=== PATIENT | male | born 1980 | race Caucasian/White ===

== ENCOUNTER 2017-08-08 11:20 | Emergency (ER) | payer OTHER ==
[2017-08-08 12:00] VITALS: BP 124/88
--- NOTE | 2017-08-08 13:07 | UC ---
Respiratory Complaint HPI - HPI Summary HPI Summary: Pt presents with c/o cough, wheezing and SOB. Pt has history of asthma but has not seen a pCP in over 3 months due to health insurance lapse. Pt is requesting refill on medication. - History of Current Complaint Chief Complaint: UCGeneralIllness Stated Complaint: EAR PAIN, CONGESTION, SORE THROAT Time Seen by Provider: 08/08/17 12:02 Hx Obtained From: Patient ?: No Onset/Duration: Gradual Onset, Lasting Days Timing: Intermittent Episodes Severity Initially: Mild Severity Currently: Mild Pain Intensity: 4 Pain Scale Used: 0-10 Numeric Character: Cough: Nonproductive Aggravating Factors: Exertion, Deep Breaths, Recumbent Position Alleviating Factors: Nothing Associated Signs And Symptoms: Positive: Wheezing, URI - Risk Factors Pulmonary Embolism Risk Factors: Smoking Cardiac Risk Factors: Smoking Pseudomonas Risk Factors: Chronic Lung Disease - astham Tuberculosis Risk Factors: Smoking - Allergies/Home Medications Allergies/Adverse Reactions: Allergies Allergy/AdvReac Type Severity Reaction Status Date / Time Aspirin Allergy Swelling Verified 08/08/17 12:00 Of Face,Lips,& Throat Home Medications: Home Medications Ibuprofen TAB* [Motrin TAB* 600 MG] 600 mg PO Q6H PRN 08/08/17 [History Confirmed 08/08/17] PMH/Surg Hx/FS Hx/Imm Hx Previously Healthy: Yes Respiratory History: Asthma - Surgical History Surgical History: Yes Surgery Procedure, Year, and Place: ear tubes. adenoids removed - Family History Known Family History: Positive: Cardiac Disease - Social History Occupation: Employed Full-time Lives: With Family Alcohol Use: None Substance Use Type: None Smoking Status (MU): Heavy Every Day Tobacco Smoker Amount Used/How Often: 1 ppd Have You Smoked in the Last Year: Yes When Did the Patient Quit Smoking/Using Tobacco: started age 11 Review of Systems Constitutional: Negative Skin: Negative Eyes: Negative ENT: Other - nasal congestion Respiratory: Cough, Other - wheezing Cardiovascular: Negative Gastrointestinal: Negative Genitourinary: Negative Motor: Negative Neurovascular: Negative Musculoskeletal: Negative Neurological: Negative Psychological: Negative Is Patient Immunocompromised?: No All Other Systems Reviewed And Are Negative: Yes Physical Exam Triage Information Reviewed: Yes Appearance: Well-Appearing Vital Signs: Initial Vital Signs Temp 97.8 F 08/08/17 11:54 Pulse 75 08/08/17 11:54 Resp 16 08/08/17 11:54 BP 124/88 08/08/17 11:54 Pulse Ox 99 08/08/17 11:54 Vital Signs Reviewed: Yes Eye Exam: Normal ENT: Positive: TM bulging - bilateral Dental Exam: Normal Neck exam: Normal Respiratory Exam: Other Respiratory: Positive: Decreased breath sounds - right lower base, Wheezing Cardiovascular Exam: Normal Musculoskeletal Exam: Normal Neurological Exam: Normal Psychological Exam: Normal Skin Exam: Normal UC Diagnostic Evaluation - Laboratory O2 Sat by Pulse Oximetry: 99 Respiratory Course/Dx - Differential Dx/Diagnosis Differential Diagnosis/HQI/PQRI: Asthma, Bronchitis Provider Diagnoses: reactive airway. unmanaged asthma. medication refill Discharge - Discharge Plan Condition: Stable Disposition: HOME Prescriptions: Albuterol HFA INHALER* [Ventolin HFA Inhaler*] 1 - 2 puff INH Q4H PRN #1 mdi PRN Reason: Wheezing Patient Education Materials: Wheezing (ED) Referrals: Heidy Valenzuela MD [Medical Doctor] - Additional Instructions: Please follow up with your PCP or return to clinic. Please continue care with your PCP to manage your previous diagnosis of asthma.
== END 2017-08-08 12:50 | disposition home or self-care (01) ==
LOC: UCCORT 11:20
DX: J45.909 Unspecified asthma, uncomplicated (principal); Z88.6 Allergy status to analgesic agent; F17.210 Nicotine dependence, cigarettes, uncomplicated; Z76.0 Encounter for issue of repeat prescription
CPT/HCPCS: 99202; G0463

== ENCOUNTER 2017-08-28 07:56 | Emergency (ER) | payer OTHER ==
--- NOTE | 2017-08-28 07:59 | UC ---
Throat Pain/Nasal Herson HPI - HPI Summary HPI Summary: 37 year old male presents with sinus congestion and left ear fullness. - History of Current Complaint Stated Complaint: EAR SINUS COMPLAINT Time Seen by Provider: 08/28/17 07:59 Hx Obtained From: Patient Onset/Duration: Sudden Onset Severity: Moderate Pain Scale Used: 0-10 Numeric - 7 - Allergies/Home Medications Allergies/Adverse Reactions: Allergies Allergy/AdvReac Type Severity Reaction Status Date / Time Aspirin Allergy Swelling Verified 08/28/17 08:04 Of Face,Lips,& Throat PMH/Surg Hx/FS Hx/Imm Hx - Surgical History Surgical History: Yes Surgery Procedure, Year, and Place: ear tubes. adenoids removed - Family History Known Family History: Positive: Cardiac Disease - Social History Alcohol Use: None Substance Use Type: None Smoking Status (MU): Heavy Every Day Tobacco Smoker Amount Used/How Often: 1 ppd Have You Smoked in the Last Year: Yes When Did the Patient Quit Smoking/Using Tobacco: started age 11 Review of Systems Constitutional: Negative Skin: Negative Eyes: Negative ENT: Ear Ache, Nasal Discharge, Sinus Congestion Respiratory: Negative Cardiovascular: Negative Gastrointestinal: Negative Genitourinary: Negative Motor: Negative Neurovascular: Negative Musculoskeletal: Negative Neurological: Negative Psychological: Negative All Other Systems Reviewed And Are Negative: Yes Physical Exam Triage Information Reviewed: Yes Appearance: Well-Appearing Eye Exam: Normal ENT: Positive: Nasal congestion, Nasal drainage Dental Exam: Normal Neck exam: Normal Neck: Positive: 1 Respiratory Exam: Normal Cardiovascular Exam: Normal Abdominal Exam: Normal Musculoskeletal Exam: Normal Neurological Exam: Normal Psychological Exam: Normal Skin Exam: Normal Throat Pain/Nasal Course/Dx - Differential Dx/Diagnosis Provider Diagnoses: sinus congestion. left ear moderate middle ear fluid Discharge - Discharge Plan Condition: Stable Disposition: HOME Prescriptions: Amoxicillin/Clavulanate TAB* [Augmentin TAB 875*] 875 mg PO BID #20 tab Neomyc/Polym/HC 1% OTIC SUSP* [Cortisporin Otic Susp 1%*] 4 drop LEFT EAR QID # 1 btl Patient Education Materials: Sinusitis (ED) Referrals: No Primary Care Phys,NOPCP [Primary Care Provider] -
[2017-08-28 08:04] VITALS: BP 118/80
== END 2017-08-28 08:22 | disposition home or self-care (01) ==
LOC: UCCORT 07:56
DX: R09.81 Nasal congestion (principal); H74.8X2 Other specified disorders of left middle ear and mastoid
CPT/HCPCS: 99212; G0463

== ENCOUNTER 2017-12-27 14:20 | Emergency (ER) | payer OTHER ==
--- OUTSIDE RECORDS SUMMARY | 2017-12-27 14:50 | XMS REPORT ---
:1980 External Reference #:[id number] Author Organization [facility] Address [address] [place] [address] Phone [phone] Care Team Providers Name Role Phone Heidy Valenzuela M.D. Care Team Information [place] Unavailable Payers Type Date Identification Numbers Payment Provider Subscriber Medicare Primary Policy Number: [id number] Medicare Raffy Lynn PayID: [id number] [address] [place] [address] Problems Description No Information Family History Date Family Member(s) Problem(s) Comments Father Unknown Father Hemochromatosis Mother Fibromyalgia Mother Multiple Sclerosis (MS) Social History Type Date Description Comments Cigarette Use Patient is a current cigarette smoker, smokes every day ETOH Use Social Allergies, Adverse Reactions, Alerts Date Description Reaction Status Severity Comments 09/03/2016 asprin active 09/03/2016 Nabumetone headache active ok to use ibuprofen 09/03/2016 Augmentin active Medications Medication Date Status Form Strength Qnty SIG Indications Ordering Provider Cetirizine Active Chewtabs 10mg 90unit one a Deniz F. HCL 016 s day MD Nicolas Ibuprofen Active Tablets 800mg 90tabs take one Deniz F. 016 tablet MD Nicolas by mouth every 8 hours as needed with food Ventolin HFA Active Aerosol 108(90Base) 24gm 2 puff Deniz F. 016 mcg/Act four MD Nicolas times a day as needed Symbicort Active Aerosol 80-4.5mcg/A 30.6gm [address] twice a MD Nicolas day Mucinex Hx Tablets ER 600mg 60tabs 1 by Heidy 016 - 12HR mouth Nicolas, twice a M.DGerardo 018 day as needed Alprazolam /0 Hx Tablets 0.5mg 1 by Unknown 000 - mouth 3x 2 a day as 018 needed Vital Signs Date Vital Result Comment 12/15/2017 BP Systolic 142 mmHg BP Diastolic 76 mmHg Height 73 inches 6'1" Weight 256.00 lb BMI (Body Mass Index) 33.8 kg/m2 Results Test Date Test Result H/L Range Note Aot Request 11/04/2017 Aot Request Test(s) added 1, 2 Tests to be added: d dimer 1 1 RAPID HEART RATE X4 DAYS,ABCESS INSIDE MOUTH 2 Tests: d dimer Instructions: Procedures Date CPT Code Description Status 12/15/2017 38726 PFT Evaluation Completed 12/15/2017 26362 Spirometry Graphic Record/Max Voluntary Vent Completed Encounters Type Date Location Provider CPT E/M Dx Office Visit 12/15/2017 2:20p [place] [id number] F17.200 F17.210 E66.9 R10.10 R10.30 J45.30 E83.10 E78.5 Plan of Care Future Appointment(s):12/22/2017 10:50 am - Deniz Valenzuela MD at Main Office
--- OUTSIDE RECORDS SUMMARY | 2017-12-27 14:50 | XMS REPORT ---
:1980 External Reference #:[id number] Author Organization [facility] Address [address] [place] [address] Phone [phone] Care Team Providers Name Role Phone Deniz Valenzuela MD Primary Care Physician Unavailable Payers Type Date Identification Numbers Payment Provider Subscriber Commercial Policy Number: [id number] [employer] Raffy Lynn PayID: [id number] [address] [place] [address] Problems Description No Information Family History Date [...] Form Strength Qnty SIG Indications Ordering Provider Hydroxyzine Active Tablets 90tabs one a Deniz F. HCL 018 day MD Nicolas Cetirizine HCL Active Chewtabs 10mg 90unit one a Deniz F. 016 s day MD Nicolas Ibuprofen Active Tablets 800mg 90tabs take one Deniz F. 016 tablet MD Nicolas by mouth every 8 hours as needed with food Ventolin HFA Active Aerosol 108(90Base 24gm 2 puff Deniz F. 016 ) mcg/Act four MD Nicolas times a day as needed Symbicort Active Aerosol 80-4.5mcg/ 30.6gm 2 puff Deniz F. 016 Act twice a MD Nicolas day Mucinex Hx Tablets ER 600mg 60tabs 1 by Heidy 016 - 12HR mouth Nicolas, twice a M.D. 018 day as needed Alprazolam Hx Tablets 0.5mg 1 by Unknown 000 - mouth 3x a day as 018 needed Immunizations CPT Code Status Date Vaccine Lot # [id number] Given 12/15/2017 Influenza Virus (Afluria) Split Virus 3 Years Of Age And Older Vital Signs Date Vital Result Comment 12/22/2017 BP Systolic 146 mmHg BP Diastolic 80 mmHg Height 73 inches 6'1" Weight 256.00 lb BMI (Body Mass Index) 33.8 kg/m2 12/15/2017 BP Systolic 142 mmHg BP Diastolic 76 mmHg Height 73 inches 6'1" Weight 256.00 lb BMI (Body Mass Index) 33.8 kg/m2 Results Test Date Test Result H/L Range Note Hepatic Function Panel 12/17/2017 Alkaline Phosphatase 54 U/L 40-115 Ast 17 U/L 10-40 Alt 37 U/L 9-46 Bilirubin,Total 0.4 mg/dL 0.2-1.2 Bilirubin,Direct 0.1 mg/dL < Or=0.2 Protein,Total 7.6 g/dL 6.1-8.1 Albumin 5.2 g/dL High 3.6-5.1 Globulin,Calculated 2.4 g/dL 1.9-3.7 A/G Ratio 2.2 1.0-2.5 Basic Metab W/O CA 12/17/2017 Sodium 140 mmol/L 135-146 Potassium 5.3 mmol/L 3.5-5.3 Chloride 104 mmol/L 98-110 Carbon Dioxide 28 mmol/L 20-31 Glucose 78 mg/dL 65-99 1 Urea Nitrogen (BUN) 14 mg/dL 7-25 Creatinine 0.96 mg/dL 0.60-1.35 BUN/Creatinine Ratio 15.0 6-22 Lipid Panel 12/17/2017 Cholesterol 226 mg/dL High <199 HDL Cholesterol 41 mg/dL >40 Cholesterol/HDL Ratio 5.5 CALC High <5.0 LDL Chol,Calculated 161 mg/dL High 0-100 2 Triglycerides 119 mg/dL <150 Non-HDL Cholesterol 186 mg/dL High <130 3 Iron Deficiency Profile 12/17/2017 Iron,Total 87 g/dL 50-180 Tibc 407 g/dL 250-425 % Saturation 21 % 15-60 Ferritin 172 NG/ML 20-345 Aot Request 11/04/2017 Aot Request Test(s) added 4, 5 Tests to be added: d dimer 4 1 GLUCOSE REFERENCE RANGE BASED ON FASTING SPECIMEN. 2 LDL-C is now calculated using the Lei-Reed calculation, which is a validated novel method providing better accuracy than the Friedewald equation in the estimation of LDL-C. Lei SS et al.GAVIOTA.2013;310(19):9009-3600 (http://education.[employer]/faq/QJJ270) Desirable range <100 mg/dL for patients with CHD or Diabetes and <70 mg/dL for Diabetic patients with known heart disease 3 For patients with diabetes plus 1 major ASCVD risk factor, treating to a non-HDL-C goal of <100 mg/dL (LDL-C of <70 mg/ dL) is considered a therapeutic option. 4 RAPID HEART RATE X4 DAYS,ABCESS INSIDE MOUTH 5 Tests: d dimer Instructions: Procedures Date CPT Code Description Status 12/15/2017 36221 PFT Evaluation Completed 12/15/2017 08344 Spirometry Graphic Record/Max Voluntary Vent Completed Encounters Type Date Location Provider CPT E/M Dx Office Visit 12/15/2017 2:20p [place] [id number] F17.200 F17.210 E66.9 R10.10 R10.30 J45.30 E83.10 E78.5 Z23 Plan of Care 12/22/2017 - Deniz Valenzuela MDAllNew Medication:Hydroxyzine HCL
[2017-12-27 14:56] VITALS: BP 136/101
--- NOTE | 2017-12-27 15:14 | UC ---
Respiratory Complaint HPI - HPI Summary HPI Summary: Pt c/o generalized malaise, cough, sob and bialteral ear pain. Pt has known history of tachycardia, htn and cholesteatoma. Pt has history of asthma and has been using rescue inh q 90 minutes - History of Current Complaint Chief Complaint: UCGeneralIllness Stated Complaint: EAR PAIN, URI SYMPTOMS Time Seen by Provider: 12/27/17 14:54 Hx Obtained From: Patient Onset/Duration: Gradual Onset, Lasting Weeks, Still Present Timing: Constant Severity Initially: Mild Severity Currently: Mild Pain Intensity: 0 Character: Cough: Nonproductive Aggravating Factors: Exertion, Deep Breaths, Recumbent Position Alleviating Factors: Nothing Associated Signs And Symptoms: Positive: Dyspnea, Wheezing, URI, Nasal Congestion - Risk Factors Pulmonary Embolism Risk Factors: Negative Cardiac Risk Factors: Hypertension Pseudomonas Risk Factors: Chronic Lung Disease - asthma - Allergies/Home Medications Allergies/Adverse Reactions: Allergies Allergy/AdvReac Type Severity Reaction Status Date / Time amoxicillin [From Augmentin] Allergy Difficulty Verified 12/27/17 14:58 Breathing/Wheezing clavulanic acid Allergy Difficulty Verified 12/27/17 14:58 [From Augmentin] Breathing/Wheezing MS Aspirin [Aspirin] Allergy Swelling Verified 12/27/17 14:56 Of Face,Lips,& Throat Home Medications: Home Medications Albuterol HFA INHALER* [Ventolin HFA Inhaler*] 2 puff INH Q4H PRN 12/27/17 [ History Confirmed 12/27/17] Budesonide/Formote 160/4.5(NF) [Symbicort 160/4.5 (NF)] 2 puff INH BID 12/27/17 [History Confirmed 12/27/17] Ibuprofen TAB* [Motrin TAB* 400 MG] 400 mg PO Q6H PRN 12/27/17 [History Confirmed 12/27/17] PMH/Surg Hx/FS Hx/Imm Hx Previously Healthy: No - anxiety Cardiovascular History: Hypertension Respiratory History: Asthma Psychological History: Anxiety - Surgical History Surgical History: Yes Surgery Procedure, Year, and Place: ear tubes. 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, 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 Gastrointestinal: Negative Genitourinary: Negative Motor: Negative Neurovascular: Negative Musculoskeletal: Negative Neurological: Negative Psychological: Negative Is Patient Immunocompromised?: No All Other Systems Reviewed And Are Negative: Yes Physical Exam Triage Information Reviewed: Yes Appearance: Well-Appearing Vital Signs: Initial Vital Signs Temp 98.5 F 12/27/17 14:51 Pulse 100 12/27/17 14:51 Resp 16 12/27/17 14:51 BP 136/101 12/27/17 14:51 Pulse Ox 99 12/27/17 14:51 Vital Signs Reviewed: Yes Eye Exam: Normal ENT: Positive: TM bulging - abnomal TMs bilatera, cholesteatoma Dental Exam: Normal Neck exam: Normal Respiratory Exam: Normal Cardiovascular: Positive: Tachycardia Musculoskeletal Exam: Normal Neurological Exam: Normal Psychological Exam: Normal Skin Exam: Normal UC Diagnostic Evaluation - Laboratory O2 Sat by Pulse Oximetry: 99 Respiratory Course/Dx - Course Course Of Treatment: I spoke to the pt about his vital signs. 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 Pt has vbeen prescribed atarax for insomnia. Pt is to establish care with PCP on Jan 07. - Differential Dx/Diagnosis Differential Diagnosis/HQI/PQRI: Bronchitis, Exacerbation Of COPD, Influenza Provider Diagnoses: bronchitis. tachycardia Discharge - Discharge Plan Condition: Stable Disposition: HOME Prescriptions: DOXYcycline CAP(*) [DOXYcycline 100MG CAP(*)] 100 mg PO Q12H #20 cap hydrOXYzine HCL TAB* [Atarax 25 MG TAB*] 25 mg PO QID PRN #40 tab PRN Reason: Anxiety methylPREDNISolone TAB* [Medrol TAB*] 4 - 8 mg PO .SEE PRADEEP #1 pradeep Patient Education Materials: Acute Bronchitis (ED), Tachycardia (ED) Referrals: [facility] [place] [facility]ERR[facility] [Outside] Non Staff,Doctor [Primary Care Provider] -
== END 2017-12-27 15:28 | disposition home or self-care (01) ==
LOC: UCCORT 14:20
DX: J40 Bronchitis, not specified as acute or chronic (principal); R00.0 Tachycardia, unspecified; I10 Essential (primary) hypertension; F41.9 Anxiety disorder, unspecified; H71.90 Unspecified cholesteatoma, unspecified ear; J45.909 Unspecified asthma, uncomplicated; F17.210 Nicotine dependence, cigarettes, uncomplicated; Z88.6 Allergy status to analgesic agent; Z88.3 Allergy status to other anti-infective agents
CPT/HCPCS: 99212; G0463

== ENCOUNTER 2018-01-09 16:06 | Emergency (ER) | payer OTHER ==
[2018-01-09 18:14] VITALS: BP 154/100
--- NOTE | 2018-01-09 18:43 | UC ---
Ear Complaint HPI - HPI Summary HPI Summary: C/O clogged right ear for the last 3 days. Pain today. Recent URI. Congestion is better. No fevers. Has colesteatoma with appointment coming up. - History of Current Complaint Chief Complaint: UCEar Stated Complaint: RIGHT EAR COMPLAINT Time Seen by Provider: 01/09/18 18:30 Hx Obtained From: Patient Onset/Duration: Sudden Onset, Lasting Days - 3, Worse Since - today. Severity Initially: Mild Severity Currently: Moderate Pain Intensity: 5 Aggravating Factors: Nothing Alleviating Factors: OTC Meds - ibuprofen makes it tolerable Associated Signs/Symptoms: Positive: Hearing Loss, URI Symptoms Related History: Seasonal Allergies - Allergies/Home Medications Allergies/Adverse Reactions: Allergies Allergy/AdvReac Type Severity Reaction Status Date / Time amoxicillin [From Augmentin] Allergy Difficulty Verified 01/09/18 18:06 Breathing/Wheezing clavulanic acid Allergy Difficulty Verified 01/09/18 18:06 [From Augmentin] Breathing/Wheezing MS Aspirin [Aspirin] Allergy Swelling Verified 01/09/18 18:06 Of Face,Lips,& Throat Home Medications: Home Medications FLUoxetine CAP* [Prozac CAP*] 20 mg DAILY 01/09/18 [History Confirmed 01/09/18] PMH/Surg Hx/FS Hx/Imm Hx Endocrine History: Dyslipidemia Respiratory History: Asthma - Surgical History Surgical History: Yes Surgery Procedure, Year, and Place: ear tubes. adenoids removed - Family History Known Family History: Positive: Cardiac Disease - Social History Occupation: Employed Full-time Lives: With Family Alcohol Use: None Substance Use Type: None Smoking Status (MU): Heavy Every Day Tobacco Smoker Type: Cigarettes Amount Used/How Often: 1/2 ppd Have You Smoked in the Last Year: Yes When Did the Patient Quit Smoking/Using Tobacco: started age 11 Cessation Counseling: Patient Advised to Stop - Immunization History Most Recent Influenza Vaccination: no 2017 Review of Systems ENT: Ear Ache Is Patient Immunocompromised?: No All Other Systems Reviewed And Are Negative: Yes Physical Exam Triage Information Reviewed: Yes Appearance: Well-Appearing, No Pain Distress, Well-Nourished Vital Signs: Initial Vital Signs Temp 98.6 F 01/09/18 18:08 Pulse 84 01/09/18 18:08 Resp 16 01/09/18 18:08 BP 154/100 01/09/18 18:08 Pulse Ox 99 01/09/18 18:08 Vital Signs Reviewed: Yes Eyes: Positive: Conjunctiva Clear ENT: Positive: Nasal congestion - with allergic changes.. Negative: TMs normal - with retraction. Neck exam: Normal Respiratory: Positive: Wheezing Cardiovascular Exam: Normal Musculoskeletal Exam: Normal Neurological Exam: Normal Psychological Exam: Normal Skin Exam: Normal Ear Complaint Course/Dx - Differential Dx/Diagnosis Differential Diagnosis/HQI/PQRI: Cerumen Impaction, Otitis Externa, Otitis Media , URI Provider Diagnoses: Allergic rhinitis. Eustachian tube dysfunction. Mild asthma Discharge - Discharge Plan Condition: Stable Disposition: HOME Prescriptions: Fluticasone NASAL SPRAY 50MCG* [Flonase NASAL SPRAY 50MCG*] 2 spray BOTH NARES DAILY #1 btl Montelukast Sodium TAB* [Singulair 10 MG TAB*] 10 mg PO BEDTIME #30 tab Patient Education Materials: Allergic Rhinitis (ED), Asthma (ED), Montelukast ( By mouth), Fluticasone (Into the nose) Referrals: Jania White NP [Primary Care Provider] - Additional Instructions: Smoking Cessation Tricks. 1. Cut down by 1 cigarette per day every 2-3 days. Write the number of smokes for that day on the calendar. 2. Identify triggers to smoking: after meals, on the phone, in the car, with coffee, on breaks at work, etc. 3. Formulate a plan with a behavior to replace the smoking. Fireballs in the car , doodle pad on the phone, flavored creamer for the coffee, go for a walk after a meal or on break at work. 4. For stress smokes do deep breathing relaxation. Breath deep in through the nose hold the breath in for a few seconds then breath out slowly through the mouth. NEILMED SINUS RINSE: CHECK OUT AT [facility] Saline nasal wash helps with mucous, allergies and congestion. It can be used up to twice a day or only as needed. Use lukewarm tap water. It does not have to be sterilized or distilled water. Do 1/3 on each side and snort out of both nostrils. Repeat the process with 1/6 of the bottle on each side with snorting in between to finish the solution in the bottle
== END 2018-01-09 19:02 | disposition home or self-care (01) ==
LOC: UCCORT 16:06
DX: J30.9 Allergic rhinitis, unspecified (principal); R06.00 Dyspnea, unspecified; J45.909 Unspecified asthma, uncomplicated; F17.210 Nicotine dependence, cigarettes, uncomplicated
CPT/HCPCS: 99212; G0463

== ENCOUNTER 2018-03-17 10:11 | Emergency (ER) | payer OTHER ==
--- NOTE | 2018-03-17 10:25 | UC ---
Throat Pain/Nasal [place] HPI - HPI Summary HPI Summary: Pt presents with sinus pain/pressure/congestion and productive cough for the last 10 days. He says that he has a history of asthma and has been using his albuterol and symbicort with mild relief. Has been taking ibuprofen OTC. Denies fever, sore throat, SOB, chest pain, abdominal pain. - History of Current Complaint Stated Complaint: EARS CONGESTION SORE THROAT Time Seen by Provider: 03/17/18 10:25 Hx Obtained From: Patient Onset/Duration: Gradual Onset Severity: Moderate Pain Intensity: 6 Pain Scale Used: 0-10 Numeric Cough: Productive - Allergies/Home Medications Allergies/Adverse Reactions: Allergies Allergy/AdvReac Type Severity Reaction Status Date / Time amoxicillin [From Augmentin] Allergy Difficulty Verified 01/09/18 18:06 Breathing/Wheezing aspirin Allergy Swelling Verified 03/17/18 10:31 Of Face,Lips,& Throat clavulanic acid Allergy Difficulty Verified 01/09/18 18:06 [From Augmentin] Breathing/Wheezing Home Medications: Home Medications Ibuprofen 400 mg PO Q6H 03/17/18 [History Confirmed 03/17/18] PMH/Surg Hx/FS Hx/Imm Hx Previously Healthy: Yes Respiratory History: Asthma - Surgical History Surgical History: Yes Surgery Procedure, Year, and Place: ear tubes. adenoids removed - Family History Known Family History: Positive: Cardiac Disease - Social History Occupation: Employed Full-time Lives: With Family Alcohol Use: None Substance Use Type: None Smoking Status (MU): Heavy Every Day Tobacco Smoker Type: Cigarettes Amount Used/How Often: 1/2 ppd Have You Smoked in the Last Year: Yes When Did the Patient Quit Smoking/Using Tobacco: started age 11 - Immunization History Most Recent Influenza Vaccination: no 2017 Review of Systems Constitutional: Fatigue Skin: Negative Eyes: Negative ENT: Nasal Discharge, Sinus Congestion, Sinus Pain/Tenderness Respiratory: Cough Cardiovascular: Negative Gastrointestinal: Negative Neurovascular: Negative Musculoskeletal: Negative Neurological: Negative Psychological: Negative All Other Systems Reviewed And Are Negative: Yes Physical Exam - Summary Physical Exam Summary: GENERAL: NAD. WDWN. No pain distress. SKIN: No rashes, sores, ulcers, masses, lesions. HEENT: NC/AT. Conjunctiva clear without inflammation or discharge. TMs intact , no bulging, erythema, or edema. Nasal mucosa mildly swollen and erythematous with clear discharge. TTP maxillary and frontal sinus. Posterior oropharynx without exudates, erythema, or tonsillar enlargement. Uvula midline. NECK: Supple. Nontender. No lymphadenopathy. CHEST: Mild wheezing throughout. No r/r. No accessory muscle use. Breathing comfortably and in no distress. CV: RRR. Without m/r/g. Pulses intact. Brisk cap refill. NEURO: Alert. CN II-XII grossly intact. PSYCH: Age appropriate behavior. Triage Information Reviewed: Yes Throat Pain/Nasal Course/Dx - Course Course Of Treatment: Pt says that he has taken amoxicillin without issues, but augmentin makes him feel "weird" and he does not tolerate it well - no throat swelling/hives/trouble breathing. Sinusitis. Bronchitis. Pt declined neb treatment and prednisone today. Will rx for amoxicillin as he said he has not responded well to zpak, keflex, or doxycycline. - Differential Dx/Diagnosis Provider Diagnoses: Sinusitis. Bronchitis Discharge - Sign-Out/Discharge Documenting (check all that apply): Discharge/Admit/Transfer - Discharge Plan Condition: Stable Disposition: HOME Prescriptions: Amoxicillin PO (*) [Amoxicillin 500 MG CAP*] 500 mg PO Q12H #20 cap guaiFENesin ER TAB [Mucinex*] 600 mg PO BID #20 tab.er Patient Education Materials: Acute Bronchitis (ED) Referrals: Jania White NP [Primary Care Provider] - Additional Instructions: If you develop a fever, shortness of breath, chest pain, new or worsening symptoms - please call your PCP or go to the ED. Your blood pressure was high at todays visit. Please see your primary provider within 4 weeks for recheck and re-evaluation. - Billing Disposition and Condition Condition: STABLE Disposition: HOME
--- OUTSIDE RECORDS SUMMARY | 2018-03-17 10:25 | XMS REPORT ---
:1980 External Reference #:[id number] Author Organization [facility] Address [address] [place] [address] Phone [phone] Care Team Providers Name Role Phone Rosa White NP Care Team Information Signalling And Communications Engineer Unavailable Rosa White CSR Primary Care Physician Unavailable Payers Type Date Identification Numbers Payment Provider Subscriber Commercial Effective: Policy Number: [id number] [facility] Raffy Lynn 2015 PayID: [id number] [address] [place] [address] Medicaid Policy Number: [id number] Medicaid Raffy Lynn PayID: [id number] [address] [place] [address] Problems Date Description Provider Status Onset: 05/02/2015 Hearing loss Irma Bradford RPAC Active Note: since Onset: 05/02/2015 Asthma Irma Bradford RPAC Active Note: seasonal Onset: 05/02/2015 Cigarette smoker Irma rBadford, RPAC Active Onset: 05/02/2015 Obesity Irma Bradford, RPAC Active Onset: 05/02/2015 Sacroiliac joint pain Irma Bradford, RPAC Active Onset: 06/21/2015 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 Onset: 07/11/2015 Cholesteatoma Irma Bradford RPAC Active Note: left Onset: 10/29/2015 Urolithiasis Irma Bradford RPAC Active Note: as a teen Onset: 10/29/2015 Microscopic hematuria Irma Bradford RPAC Active Onset: 03/27/2016 REM sleep behavior disorder Irma Sanchez [facility] Active Note: alprazolam Family History Date Family Member(s) Problem(s) Comments Father Anxiety Father Depression Father Hemochromatosis Father Liver Disease Father Alcoholism Father Drug Addiction Mother Multiple Sclerosis Mother Fibromyalgia Mother Diabetes Mother Anxiety Paternal Grandfather Unknown Paternal Grandmother Unknown Maternal Grandfather Unknown Maternal Grandmother Diabetes : (age 80 Maternal Grandmother due to Alzheimer's Years) Disease Social History Type Date Description Comments Lives With Lives With Children Occupation [employer] ETOH Use Occasionally consumes alcohol Smoking 13 Years Heavy tobacco smoker (more than 10 1 PPD cigarettes/day) Daily Caffeine Current Caffeine User 6 cups per day, 2 sodas Allergies, Adverse Reactions, Alerts Date Description Reaction Status Severity Comments 05/02/2015 Aspirin swelling active 05/02/2015 Nabumetone HEADACHE, ok for ibuprofen active 12/27/2015 Augmentin cannot tolerate active Medications Medication Date Status Form Strength Qnty SIG Indications Ordering Provider Prednisone 02/16 Active Tablets 10mg 10tab 1 po bid x J45.909 s 5 days ALEA White Nicotrol 02/16 Active Inhaler 10mg 336un 1 cartridge Z72.0 its as needed ALEA White up to 16 a day *do not use cigarettes when using inahler* Omeprazole 02/16 Active Capsules 20mg 30cap [address] summers every day ALEA White Hydroxyzine 01/29 Active Tablets 25mg 60tab one po Q4 [facility] HCL s hours for ALEA White anxiety Cetirizine 03/12 Active Tablets 10mg 30tab take one J30.9 José Gonzalez HCL s tablet by DO mouth every evening for nasal congestion/ allergies Ibuprofen 05/10 Active Tablets 800mg 120ta 1 by mouth M46.1 José Gonzalez /2014 bs every 6 DO hours as needed for pain Ventolin HFA 05/02 Active Aerosol 108(90Bas 18gm 1-2 puffs José Gonzalez /2014 e) every 4-6 DO mcg/Act hours as needed Symbicort 05/02 Active Aerosol 80-4.5mcg 20.4g 2 J45.909 Rosa /2014 /Act m inhalations Clune, TELEPHONE DIRECTORY DELIVERER twice a day Montelukast 00/00 Active Tablets 10mg 90tab One PO QHS Jenniferleigh Sodium /0000 s Clune, TELEPHONE DIRECTORY DELIVERER Azithromycin 01/19 Hx Tablets 250mg 6tabs 2 tabs H92.01 Lurdes Ryan, /2017 today and PNP-BC, TELEPHONE DIRECTORY DELIVERER, - then 1 tab Ibclc 02/16 every for 4 more days Fluoxetine 01/07 Hx Capsules 20mg 30cap 1 by mouth F41.1 Jenniferleigh HCL /2017 s every day OJ WhiteP - 02/16 Quetiapine 01/07 Hx Tablets 25mg 60tab take 1 G47.52 Jenniferleigh Fumarate s tablet by ALEA White - mouth 1 02/16 hour prior to sleep,if no improvement in 3 days,may try 2 tablets as needed up to 4 tablets at night Alprazolam 04/01 Hx Tablets 0.5mg 30tab 1 tab by G47.52 José Gonzalez s mouth every DO - night at 01/07 bedtime sleep disturbance ::: Reference #: [id number] Alprazolam 03/27 Hx Tablets 0.5mg 30tab 1 tab by G47.52 José Gonzalez Dispers s mouth at DO - bedtime 04/01 Trazodone HCL 03/12 Hx Tablets 50mg 30tab 1 by mouth G47.52 José Gonzalez s every night DO - insomnia 03/27 Mucinex 12/27 Hx Tablets 600mg 60tab 1-2 tabs by J45.909 José Gonzalez ER 12HR s mouth twice DO - a day 01/07 Amoxicillin/C 11/26 Hx Tablets 875-125mg 20tab 1 tab by H71.93 José Gonzalez lavulanate s mouth every DO Potassium - 12 hours 12/27 with food /2015 Work Note 11/26 Hx Raffy is H71.93 José Gonzalez following DO - at Primary 11/30 Care Office for chronic ear condition. Treatment is ongoing. Specialist visit arranged Cephalexin 12/07 Hx Capsules 500mg 30cap 1 cap ( or H66.3x2 José Gonzalez s tab) by DO - mouth three 12/27 times a day /2015 Work Note 07/26 Hx Was 719.47 José Gonzalez evaluated DO - on 07/26/1509/04 for (L) /2014 foot and ankle pain. May return to work without restriction s Cephalexin 06/21 Hx Tablets 500mg 30tab 1 tab (or 381.10 José Gonzalez s cap) by DO - mouth three 07/11 times a day /2014 Condylox 06/21 Hx Gel 0.5% 3.500 Small amt 078.10 José Gonzalez gm to penile DO - warts as 09/04 directed Flovent HFA 05/02 Hx Aerosol 44mcg/Act inhale two José Gonzalez puffs by DO - mouth twice 05/02 a day needed Ibuprofen 05/02 Hx Tablets 800mg 1 by mouth 720.2 José Gonzalez every 8 DO - hours as 05/02 needed for pain Mucinex 05/02 Hx Tablets 600mg 60tab take two by 491.1 José Gonzalez ER 12HR s mouth twice DO - a day for 06/15 chest congestion/ cough Cephalexin 05/02 Hx Tablets 500mg 30tab 1 tab (or 491.1 José Gonzalez s cap) by DO - mouth three 06/15 times a /2014 Nabumetone 05/02 Hx Tablets 750mg 60tab take one 720.2 José Gonzalez s tablet by DO - mouth twice 05/10 a day with food for pain as needed (substitute for ibuprofen ) Unisom 05/02 Hx Capsules 50mg uses every José Gonzalez Sleepgels /2014 night since DO - 14 yrs old 10/29 Neomycin-Poly Hx Solution 3.5-92214 to ears prn Unknown myxin-HC /0000 -1 - 10/29 Flovent HFA 00 Hx Aerosol mcg/Act 2 puff Unknown /0000 twice a day - 06/21 Hydrocortison Hx Solution 1% Otic 10uni Every 8 Unknown e/Neomycin/Po /0000 ts Hours lymyxin - 03/12 Hydroxyzine 00/00 Hx Tablets 25mg Irvin, HCL /0000 Erica Elmore NP - 01/19 Vital Signs Date Vital Result Comment 02/16/2018 BP Systolic Sitting Left Arm 124 mmHg BP Diastolic Sitting Left Arm 86 mmHg Body Temperature 98.6 F Heart Rate 80 /min Respiratory Rate 20 /min Height 73 inches 6'1" Weight 268.00 lb BMI (Body Mass Index) 35.4 kg/m2 BSA (Body Surface Area) 2.44 m2 [place] body weight in kilograms 83 O2 % BldC Oximetry 98 % 01/19/2018 BP Systolic 158 mmHg BP Diastolic 88 mmHg Body Temperature 98.0 F Heart Rate 97 /min Height 73 inches 6'1" Weight 259.00 lb BMI (Body Mass Index) 34.2 kg/m2 BSA (Body Surface Area) 2.40 m2 [place] body weight in kilograms 83 O2 % BldC Oximetry 97 % 01/07/2018 BP Systolic Sitting Left Arm 152 mmHg BP Diastolic Sitting Left Arm 92 mmHg Heart Rate 88 /min Respiratory Rate 18 /min Height 73 inches 6'1" Weight 262.00 lb BMI (Body Mass Index) 34.6 kg/m2 BSA (Body Surface Area) 2.41 m2 [place] body weight in kilograms 83 03/12/2016 BP Systolic 118 mmHg BP Diastolic 84 mmHg Body Temperature 97.9 F Heart Rate 74 /min Respiratory Rate 16 /min Height 72.75 inches 6'0.75" Weight 267.00 lb BMI (Body Mass Index) 35.5 kg/m2 BSA (Body Surface Area) 2.43 m2 O2 % BldC Oximetry 98 % 12/27/2015 BP Systolic Sitting Left Arm 154 mmHg BP Diastolic Sitting Left Arm 80 mmHg Body Temperature 96.6 F Height 72.75 inches 6'0.75" Weight 259.12 lb BMI (Body Mass Index) 34.4 kg/m2 BSA (Body Surface Area) 2.40 m2 11/26/2015 BP Systolic Sitting Left Arm 122 mmHg BP Diastolic Sitting Left Arm 64 mmHg Body Temperature 98.2 F Height 72.75 inches 6'0.75" Weight 261.12 lb BMI (Body Mass Index) 34.7 kg/m2 BSA (Body Surface Area) 2.40 m2 10/29/2015 BP Systolic Sitting Left Arm 144 mmHg BP Diastolic Sitting Left Arm 64 mmHg Height 72.75 inches 6'0.75" Weight 260.50 lb BMI (Body Mass Index) 34.6 kg/m2 BSA (Body Surface Area) 2.40 m2 07/26/2015 BP Systolic 130 mmHg BP Diastolic 68 mmHg Height 72.75 inches 6'0.75" Weight 260.00 lb BMI (Body Mass Index) 34.5 kg/m2 BSA (Body Surface Area) 2.40 m2 06/21/2015 BP Systolic 134 mmHg BP Diastolic 82 mmHg Heart Rate 86 /min Respiratory Rate 18 /min Height 72.75 inches 6'0.75" Weight 271.00 lb BMI (Body Mass Index) 36.0 kg/m2 BSA (Body Surface Area) 2.44 m2 O2 % BldC Oximetry 96 % Ra 05/02/2015 BP Systolic 127 mmHg sitting BP Diastolic 86 mmHg sitting Body Temperature 98.8 F Heart Rate 89 /min Height 72.75 inches 6'0.75" Weight 276.00 lb BMI (Body Mass Index) 36.7 kg/m2 BSA (Body Surface Area) 2.46 m2 Results Test Date Test Result H/L Range Note Chloride SerPl-sCnc 11/04/2017 Chloride SerPl-sCnc 108 High 98-107 Eosinophil/leuk NFr 11/04/2017 Eosinophil/leuk NFr 0.8 0.0-6.6 Bld Auto Bld Auto Globulin Ser Calc-mCnc 11/04/2017 Globulin Ser Calc-mCnc 3.7 1.9-4.3 Lymphocytes/leuk NFr 11/04/2017 Lymphocytes/leuk NFr 22.3 20.0-42.0 Bld Auto Bld Auto Monocytes/leuk NFr Bld 11/04/2017 Monocytes/leuk NFr Bld 4.6 0.0-10.0 Auto Auto Neutrophils # Bld Auto 11/04/2017 Neutrophils # Bld Auto 8.14 High 1.8- 7.0 Neutrophils/leuk NFr 11/04/2017 Neutrophils/leuk NFr 71.9 33.0-73.0 Bld Auto Bld Auto Potassium SerPl-sCnc 11/04/2017 Potassium SerPl-sCnc 4.0 3.5-5.1 RDW RBC Auto 11/04/2017 RDW RBC Auto 41.1 36-51 RDW RBC Auto-Rto 11/04/2017 RDW RBC Auto-Rto 12.7 11.6-15.8 Serum carbon dioxide 11/04/2017 Serum carbon dioxide 28 21-32 measurement measurement Serum or plasma 11/04/2017 Serum or plasma 4.4 3.4-5.0 albumin measurement albumin measurement (mass/volume) (mass/volume) Serum or plasma 11/04/2017 Serum or plasma 59 45-117 alkaline phosphatase alkaline phosphatase measurement ( measurement (enzymatic activity/volume) Serum or plasma 11/04/2017 Serum or plasma 13 Low 15-37 aspartate aspartate aminotransferase aminotransferase measure measurement (enzymatic activity/volume) Serum or plasma 11/04/2017 Serum or plasma 9.2 8.5-10.1 calcium measurement calcium measurement (mass/volume) (mass/volume) Serum or plasma 11/04/2017 Serum or plasma 1.0 0.6-1.3 creatinine measurement creatinine measurement (mass/volum (mass/volume) Serum or plasma 11/04/2017 Serum or plasma 92 74-106 glucose measurement glucose measurement (mass/volume) (mass/volume) Serum or plasma 11/04/2017 Serum or plasma 8.1 6.4-8.2 protein measurement protein measurement (mass/volume) (mass/volume) Serum or plasma total 11/04/2017 Serum or plasma total 0.6 0.2-1.0 bilirubin measurement bilirubin measurement (mass/ (mass/volume) Serum or plasma urea 11/04/2017 Serum or plasma urea 17 7-18 nitrogen measurement nitrogen measurement (mass/vo (mass/volume) Serum sodium 11/04/2017 Serum sodium 141 136-145 measurement measurement Unloinc 11/04/2017 Unloinc . WBC # Bld Auto 11/04/2017 WBC # Bld Auto 11.3 High 3.4-10.5 * Miscellaneous 11/04/2017 * Miscellaneous Test(s) studies (set) studies (set) added Comprehensive 11/04/2017 Glucose 92 mg/dL 74-106 1 Metabolic Panel BUN 17 mg/dL 7-18 1 Creatinine 1.0 mg/dL 0.6-1.3 1 Glom Filtration Rate, Estimate >60 mL/min >60 1 If >60 mL/min >60 1, 2 BUN/Creat 17.0 ratio 1 Sodium 141 mmol/L 136-145 1 Potassium 4.0 mmol/L 3.5-5.1 1 Chloride 108 mmol/L High 98-107 1 Carbon Dioxide 28 mmol/L 21-32 1 Anion Gap 5 mEq/L Low 8-16 1 Calcium 9.2 mg/dL 8.5-10.1 1 Total Protein 8.1 g/dL 6.4-8.2 1 Albumin 4.4 g/dL 3.4-5.0 1 Globulin 3.7 g/dL 1.9-4.3 1 Alb/Glob 1.2 ratio 1 Bilirubin,Total 0.6 mg/dL 0.2-1.0 1 Sgot/Ast 13 U/L Low 15-37 1, 3 SGPT/Alt 36 U/L 12-78 1 Alkaline Phosphatase 59 U/L 45-117 1 Laboratory test finding 11/04/2017 CK 168 U/L 39-308 1 Troponin-I < 0.015 ng/mL 1, 4 CBS W/Automated Diff 11/04/2017 White Blood Count 11.3 K/uL High 3.4-10.5 1 Red Blood Count 5.22 M/uL 4.20-5.80 1 Hemoglobin 16.0 gm/dL 12.8-17.0 1 Hematocrit 46.2 % 38.0-48.0 1 Mean Cell Volume 88.5 fl 80.0-96.0 1 Mean Corpuscular HGB 30.7 pg 27.0-33.0 1 Mean Corpuscular HGB Conc 34.6 g/dL 31.7-36.0 1 Platelet Count 273 K/uL 155-360 1 Red Cell Distri Width SD 41.1 fl 36-51 1 Red Cell Distri Width %CV 12.7 % 11.6-15.8 1 Mean Platelet Volume 9.8 fL 6.6-10.6 1 Neut% 71.9 % 33.0-73.0 1 Lymph % 22.3 % 20.0-42.0 1 Cavalier % 4.6 % 0.0-10.0 1 Eo% 0.8 % 0.0-6.6 1 Bas% 0.4 % 0.0-1.1 1 Neut# 8.14 K/uL High 1.8-7.0 1 Lymph # 2.53 K/uL 1.0-4.0 1 Cavalier # 0.52 K/uL 0.0-0.8 1 Eos # 0.09 K/uL 0.0-0.5 1 Baso # 0.04 K/uL 0.0-0.1 1 Slide Review 11/04/2017 Slide Review . 1, 5 Laboratory test 11/04/2017 D-Dimer, Quantitative < 0.22 1, 6 finding ug/mL Alt SerPl-cCnc 11/04/2017 Alt SerPl-cCnc 36 12-78 Albumin/Glob SerPl 11/04/2017 Albumin/Glob SerPl 1.2 Anion Gap SerPl-sCnc 11/04/2017 Anion Gap SerPl-sCnc 5 Low 8-16 Automated blood 11/04/2017 Automated blood 0.04 0.0-0.1 basophil count basophil count (count/volume) (count/volume) Automated blood 11/04/2017 Automated blood 0.09 0.0-0.5 eosinophil count eosinophil count Blood monocytes 11/04/2017 Blood monocytes 0.52 0.0-0.8 automated count automated count (number/volume) (number/volume) Blood hemoglobin 11/04/2017 Blood hemoglobin 16.0 12.8-17.0 measurement measurement (mass/volume) (mass/volume) Blood erythrocytes 11/04/2017 Blood erythrocytes 5.22 4.20-5.80 automated count automated count (number/volume) (number/volume) Basophils/leuk NFr Bld 11/04/2017 Basophils/leuk NFr Bld 0.4 0.0-1.1 Auto Auto BUN/Creat SerPl 11/04/2017 BUN/Creat SerPl 17.0 Automated erythrocyte 11/04/2017 Automated erythrocyte 88.5 80.0-96.0 mean corpuscular mean corpuscular volume volume Automated erythrocyte 11/04/2017 Automated erythrocyte 34.6 31.7-36.0 mean corpuscular mean corpuscular hemoglobin hemoglobin concentration measurement (mass/volume) Automated erythrocyte 11/04/2017 Automated erythrocyte 30.7 27.0-33.0 mean corpuscular mean corpuscular hemoglobin hemoglobin (mass per erythrocyte) Automated blood 11/04/2017 Automated blood 9.8 6.6-10.6 platelet mean volume platelet mean volume measurement measurement Automated blood 11/04/2017 Automated blood 273 155-360 platelet count platelet count Automated blood 11/04/2017 Automated blood 2.53 1.0-4.0 lymphocyte count lymphocyte count (number/volume) (number/volume) Automated blood 11/04/2017 Automated blood 46.2 38.0-48.0 hematocrit (volume hematocrit (volume fraction) fraction) Comprehensive 11/21/2015 Glucose 77 mg/dL 74-106 Metabolic Panel BUN 14 mg/dL 7-18 Creatinine 0.9 mg/dL 0.6-1.3 Glom Filtration Rate, Estimate >60 mL/min >60 If >60 mL/min >60 7 BUN/Creat 15.5 ratio Sodium 139 mmol/L 136-145 Potassium 4.1 mmol/L 3.5-5.1 Chloride 105 mmol/L 98-107 Carbon Dioxide 29 mmol/L 21-32 Anion Gap 5 mEq/L Low 8-16 Calcium 8.7 mg/dL 8.5-10.1 Total Protein 7.5 g/dL 6.4-8.2 Albumin 4.1 g/dL 3.4-5.0 Globulin 3.4 g/dL 1.9-4.3 Alb/Glob 1.2 ratio Bilirubin,Total 0.5 mg/dL 0.2-1.0 Sgot/Ast 14 U/L Low 15-37 8 SGPT/Alt 31 U/L 12-78 Alkaline Phosphatase 65 U/L 45-117 Laboratory test finding 11/21/2015 CK 199 U/L 39-308 Troponin-I < 0.015 ng/mL 9 CBC W/Automated Diff 11/21/2015 White Blood Count 7.3 K/uL 3.4-10.5 Red Blood Count 4.85 M/uL 4.20-5.80 Hemoglobin 14.9 gm/dL 12.8-17.0 Hematocrit 43.5 % 38.0-48.0 Mean Cell Volume 89.7 fl 80.0-96.0 Mean Corpuscular HGB 30.7 pg 27.0-33.0 Mean Corpuscular HGB Conc 34.3 g/dL 31.7-36.0 Platelet Count 261 K/uL 150-400 Red Cell Distri Width SD 41.0 fl 36-51 Red Cell Distri Width %CV 12.8 % 11.6-15.8 Mean Platelet Volume 9.8 fL 6.6-10.6 Neut% 43.9 % 33.0-73.0 Lymph % 47.6 % 17.0-56.0 Cavalier % 6.4 % 0.0-10.0 Eo% 1.6 % 0.0-5.0 Bas% 0.5 % 0.1-1.0 Neut# 3.21 K/uL 1.8-7.0 Lymph # 3.49 K/uL 1.8-7.0 Cavalier # 0.47 K/uL 0.0-0.8 Eos # 0.12 K/uL 0.0-0.5 Baso # 0.04 K/uL Low 0.1-0.2 Laboratory test finding 11/21/2015 Basophils # (Auto) 0.04 Low 0.1-0.2 Basophils (%) (Auto) 0.5 0.1-1.0 Eosinophils # (Auto) 0.12 0.0-0.5 Eosinophils (%) (Auto) 1.6 0.0-5.0 Lymphocytes # (Auto) 3.49 1.8-7.0 Lymphocytes (%) (Auto) 47.6 17.0-56.0 Monocytes # (Auto) 0.47 0.0-0.8 Monocytes (%) (Auto) 6.4 0.0-10.0 Neutrophils # (Auto) 3.21 1.8-7.0 Neutrophils (%) (Auto) 43.9 33.0-73.0 RDW Coefficient of Variation 12.8 11.6-15.8 Red Cell Distribution Width 41.0 36-51 Sodium Level 139 136-145 1 RAPID HEART RATE X4 DAYS,ABCESS INSIDE MOUTH 2 Note: Persistent reduction for 3 months or more in an eGFR <60 mL/min/1.73 m2 defines CKD. Patients with eGFR values >/=60 mL/min/1.73 m2 may also have CKD if evidence of persistent proteinuria is present. The original MDRD equation for estimated GFR is not valid for patients less than 18 years of age. Additional information may be found at www.kdoqi.org. 3 Values below the stated reference ranges of AST and ALT can be seen in normal populations. Clinical correlation is suggested. 4 0.0 - 0.045 ng/mL: Normal 0.046 - 0.5 ng/mL: Suggestive 0.6 - 1.5 ng/mL: Consistent 5 Instrument flagged sample for slide review. Less than 10% Bands seen, no other immature WBC's seen. RBC morphology essentially normal. Platelet estimate=NORMAL 6 <=0.49 ug/mL - Low likelihood of DIC, DVT or Pulmonary Embolism >0.49 ug/mL - Additional testing should be done to rule out DIC, DVT, or Pulmonary embolism as clinically indicated. ([facility] has established a 97.89% negative predictive value for thrombotic disease when a cutoff value of 0.5 ug/mL is used.) 7 Note: Persistent reduction for 3 months or more in an eGFR <60 mL/min/1.73 m2 defines CKD. Patients with eGFR values >/=60 mL/min/1.73 m2 may also have CKD if evidence of persistent proteinuria is present. The original MDRD equation for estimated GFR is not valid for patients less than 18 years of age. Additional information may be found at www.kdoqi.org. 8 Values below the stated reference ranges of AST and ALT can be seen in normal populations. Clinical correlation is suggested. 9 0.0 - 0.045 ng/mL: Normal 0.046 - 0.5 ng/mL: Suggestive 0.6 - 1.5 ng/mL: Consistent Procedures Description No Information Encounters Type Date Location Provider CPT E/M Dx Office Visit 02/16/2018 Family Medicine ALEA Zamudio 13915 J45.909 11:45a G47.52 F17.210 Z72.0 R12 Office Visit 01/19/2018 3:30p Family Medicine Lurdes Ryan PNP-, 40379 H92.01 TELEPHONE DIRECTORY DELIVERER, Ibclc Office Visit 01/07/2018 1:00p Family Medicine ALEA Zamudio 96285 H71.93 J45.909 F17.210 F41.1 G47.52 Office Visit 03/12/2016 2:00p Primary Care Office Irma Bradford 28985 G47.52 [facility] H60.42 J30.9 M77.11 Office Visit 12/27/2015 2:15p Primary Care Office Irma Bradford 26559 H71.93 [facility] J45.909 F17.210 Office Visit 11/26/2015 10:15a Primary Care Office Irma Bradford, 08347 H71.93 [facility] Office Visit 10/29/2015 1:15p Primary Care Office Irma Bradford, 78006 H66.3x2 [facility] J45.909 R31.2 Office Visit 07/26/2015 11:00a Primary Care Office Irma Bradford, 94355 719.47 RPA Office Visit 06/21/2015 2:15p Primary Care Office Irma Bradford, 15369 381.10 [facility] 078.10 Office Visit 05/02/2015 10:45a Primary Care Office Irma Bradford, 69393 385.30 [facility] 736.76 493.90 491.1 780.53 720.2 Plan of Care 02/16/2018 - Rosa White, FNPJ45.909 Unspecified asthma, uncomplicatedNew Medication:Prednisone 10 mgComments:Discussed continuing Singulair, restarting Symbicort twice daily Will do a VERY short course of prednisoneFollow up:10-14 days recheck hciqnjxpeR51.52 REM sleep behavior disorderComments:continue on Hydroxyzine 25 mgF17.210 Nicotine dependence, cigarettes, ylqnyxicyawajO74.0 Tobacco useNew Medication:Nicotrol 10 mgComments: Discussed options Various options for smoking cessation including cold turkey, gradual reduction of smoking till quit, use of nicotine replacement or Chantix/ Zyban. Encouraged contacting [place] [facility] ([phone] [place] [facility]) At this time will use nicotrol as you don't like oral [id number] HeartburnNew Medication: Omeprazole 20 mgComments:Discussed GERD diet: avoid hot spicy foods, tomato based products, acidic foods such as orange juiceas well as spearmint and peppermint (this includes chewing gum). Avoid tight fitting clothing and belts, as these delay emptying of the stomach. Don't lay down for 2 hours after eating , and try to eatsmaller meals, adding in small snacks between. Raising the head of the bed by several inches may also help night time symptoms.
--- OUTSIDE RECORDS SUMMARY | 2018-03-17 10:25 | XMS REPORT ---
:1980 External Reference #:[id number] Author Organization [facility] Address [address], [address] [place] [address] Phone [phone] Care Team Providers Name Role Phone Rosa White NP Care Team Information Teamcenter Solution Architect Unavailable Rosa White TRANSPORTATION ASSOCIATE Primary Care Physician Unavailable Payers Type Date Identification Numbers Payment Provider Subscriber Commercial Effective: Policy Number: [id number] [facility] Raffy Lynn 2015 PayID: [id number] [address] [place] [address] Medicaid Policy Number: [id number] Medicaid Raffy Lynn PayID: [id number] [address] [place] [address] Problems Date Description Provider Status Onset: 05/02/2015 Hearing loss Irma Bradford RPAC Active Note: since Onset: 05/02/2015 Asthma Irma Bradford RPAC Active Note: seasonal Onset: 05/02/2015 Cigarette smoker Irma Bradford, RPAC Active Onset: 05/02/2015 Obesity Irma Bradford, RPAC Active Onset: 05/02/2015 Sacroiliac joint pain Irma Bradford, RPAC Active Onset: 06/21/2015 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 Onset: 07/11/2015 Cholesteatoma Irma Bradford, RPAC Active Note: left Onset: 10/29/2015 Urolithiasis Irma Bradford RPAC Active Note: as a teen Onset: 10/29/2015 Microscopic hematuria Irma Bradford, RPAC Active Onset: 03/27/2016 REM sleep behavior disorder Irma Sanchez [facility] Active Note: alprazolam Family History Date [...] Comments Lives With Lives With Children Occupation [employer] ETOH Use Occasionally consumes alcohol [...] Form Strength Qnty SIG Indications Ordering Provider Nicotrol 02/16 Active Inhaler 10mg 336un 1 cartridge Z72.0 its as needed ALEA White up to 16 a day *do not use cigarettes when using inahler* Omeprazole 02/16 Active Capsules 20mg 30cap 1 by mouth R12 [address] summers every day ALEA White Hydroxyzine 01/29 Active Tablets 25mg 60tab one by Rosa BLUNT s mouth q4 ALEA White hours for anxiety Cetirizine 03/12 Active Tablets 10mg 30tab take one J30.9 Rosa BLUNT s tablet by ALEA White mouth every evening for nasal congestion/ allergies Ibuprofen 05/10 Active Tablets 800mg 120ta 1 by mouth M46.1 José Gonzalez /2014 bs every 6 DO hours as needed for pain Ventolin HFA 05/02 Active Aerosol 108(90Bas 18gm 1-2 puffs arlene e) every 4-6 ALEA White mcg/Act hours as needed Symbicort 05/02 Active Aerosol 80-4.5mcg 20.4g 2 J45.909 Rosa /Act m inhalations Clune, [employer] twice a day Montelukast Active Tablets 10mg 30tab one by Rosa Sodium / s mouth every Cindy, ALEA night at bedtime Prednisone 02/16 Hx Tablets 10mg 10tab 1 po bid x J45.909 Jenniferleigh s 5 days OJ WhiteP - 03/11 Azithromycin 01/19 Hx Tablets 250mg 6tabs 2 tabs H92.01 Lurdes Ryan, /2017 today and PNP-BC, [employer], - then 1 tab Ibclc 02/16 every day for 4 more days Fluoxetine 01/07 Hx Capsules 20mg 30cap 1 by mouth F41.1 Jenniferleigh HCL s every day ALEA White - 02/16 Quetiapine 01/07 Hx Tablets 25mg [...] 01/07 bedtime sleep disturbance ::: Reference #: [id number] Alprazolam 03/27 Hx Tablets 0.5mg 30tab 1 [...] following DO - at Primary 11/30 Care for chronic ear condition. Treatment is ongoing. Specialist visit arranged Cephalexin 10/29 Hx Capsules 500mg 30cap 1 cap ( [...] DO - a day for 06/15 chest /2014 congestion/ cough Cephalexin 05/02 Hx Tablets 500mg 30tab 1 tab (or 491.1 José Gonzalez s cap) by DO - mouth three 06/15 times a Nabumetone 05/02 Hx Tablets 750mg 60tab take one 720.2 José Gonzalez s tablet by DO - mouth twice 05/10 a day with food for pain as needed (substitute for ibuprofen ) Unisom 05/02 Hx Capsules 50mg uses every José Gonzalez Sleepgel /2014 night since DO - 14 yrs old 10/29 Neomycin-Poly Hx Solution [id number] to ears prn Unknown myxin-HC /0000 -1 - 10/29 Flovent HFA Hx Aerosol mcg/Act 2 puff Unknown /0000 twice a day - 06/21 Hydrocortison Hx Solution 1% Otic 10uni Every 8 Unknown e/Neomycin/Po /0000 ts Hours lymyxin - 03/12 Hydroxyzine Hx Tablets 25mg Gutierrez-Gugerty, HCL /0000 Erica Elmore TRANSPORTATION ASSOCIATE - 01/19 Vital Signs Date Vital Result Comment 03/11/2018 BP Systolic Sitting Left Arm 128 mmHg BP Diastolic Sitting Left Arm 84 mmHg Body Temperature 98.2 F Heart Rate 84 /min Respiratory Rate 18 /min Height 73 inches 6'1" Weight 271.00 lb BMI (Body Mass Index) 35.8 kg/m2 BSA (Body Surface Area) 2.45 m2 [place] body weight in kilograms 83 02/16/2018 BP Systolic Sitting Left Arm 124 mmHg BP Diastolic Sitting Left Arm 86 mmHg Body Temperature 98.6 F Heart Rate 80 /min Respiratory Rate 20 /min Height 73 inches 6'1" Weight 268.00 lb BMI (Body Mass Index) 35.4 kg/m2 BSA (Body Surface Area) 2.44 m2 [place] body weight in kilograms 83 O2 % BldC Oximetry 98 % 01/19/2018 BP Systolic 158 mmHg BP Diastolic 88 mmHg Body Temperature 98.0 F Heart Rate 97 /min Height 73 inches 6'1" Weight 259.00 lb BMI (Body Mass Index) 34.2 kg/m2 BSA (Body Surface Area) 2.40 m2 [place] body weight in kilograms 83 O2 % BldC Oximetry 97 % 01/07/2018 BP Systolic Sitting Left Arm 152 mmHg BP Diastolic Sitting Left Arm 92 mmHg Heart Rate 88 /min Respiratory Rate 18 /min Height 73 inches 6'1" Weight 262.00 lb BMI (Body Mass Index) 34.6 kg/m2 BSA (Body Surface Area) 2.41 m2 [place] body weight in kilograms 83 03/12/2016 BP [...] 1 Lymph % 22.3 % 20.0-42.0 1 [place] % 4.6 % 0.0-10.0 1 Eo% 0.8 % 0.0-6.6 1 Bas% 0.4 % 0.0-1.1 1 Neut# 8.14 K/uL High 1.8-7.0 1 Lymph # 2.53 K/uL 1.0-4.0 1 [place] # 0.52 K/uL 0.0-0.8 1 Eos # [...] % 33.0-73.0 Lymph % 47.6 % 17.0-56.0 [place] % 6.4 % 0.0-10.0 Eo% 1.6 % 0.0-5.0 Bas% 0.5 % 0.1-1.0 Neut# 3.21 K/uL 1.8-7.0 Lymph # 3.49 K/uL 1.8-7.0 [place] # 0.47 K/uL 0.0-0.8 Eos # 0.12 [...] DVT, or Pulmonary embolism as clinically indicated. ([facility] has established a 97.89% negative predictive value [...] Location Provider CPT E/M Dx Office Visit 03/11/2018 [place] [address] J45.909 8:45a F17.210 R12 Office Visit 02/16/2018 11:[place] [address] J45.909 G47.52 F17.210 R12 Office Visit 01/19/2018 3:30p Family Medicine Lurdes Ryan PNP-BC, 38809 H92.01 [employer], Ibclc Office Visit 01/07/2018 1:00p Family Medicine ALEA Zamudio 73196 H71.93 J45.909 F17.210 F41.1 G47.52 Office Visit 03/12/2016 2:00p Primary Care Office Irma Bradford, 04281 G47.52 [facility] H60.42 J30.9 M77.11 Office Visit 12/27/2015 2:15p Primary Care Office Irma Bradford, 23134 H71.93 RPA J45.909 F17.210 Office Visit 11/26/2015 10:15a Primary Care Office Irma Bradford, 30688 H71.93 RPAC Office Visit 10/29/2015 1:15p Primary Care Office Iram Bradford, 27455 H66.3x2 [facility] J45.909 R31.2 Office Visit 07/26/2015 11:00a Primary Care Office Irma Bradford, 55477 719.47 RPAC Office Visit 06/21/2015 2:15p Primary Care Office Irma Bradford, 66420 381.10 RPAC 078.10 Office Visit 05/02/2015 10:45a Primary Care Office Irma Bradford, 66112 385.30 RPAC 736.76 493.90 491.1 780.53 720.2 Plan of Care Future Appointment(s):05/18/2018 8:30 am - ALEA Zamudio at [facility]03/11/2018 - ALEA ZamudioJ45.909 Unspecified asthma, uncomplicatedComments:MUCH better. Remember the rules of 2 - if your asthma wakes you up more than twice a week for cough,or you use your inhaler more than twice in a day or twice in one week, it could indicate that your asthma is no longer well controlled and you should be seen for further evaulation.F17.210 Nicotine dependence, cigarettes, uncomplicatedComments:Doing GREAT with smoking cessation. Continue with Nicotrol. We'll see in 2 months about D/C nicotrol.Follow up:2-3 months for recheck of GERD & [id number] HeartburnComments:Improved on Omeprazole - will continue for another 2 months, then consider D/CAllComments:All medications refilled.
[2018-03-17 10:37] VITALS: BP 131/94
== END 2018-03-17 11:04 | disposition home or self-care (01) ==
LOC: UCCORT 10:11
DX: J32.9 Chronic sinusitis, unspecified (principal); J40 Bronchitis, not specified as acute or chronic; F17.210 Nicotine dependence, cigarettes, uncomplicated; Z88.3 Allergy status to other anti-infective agents; Z88.6 Allergy status to analgesic agent
CPT/HCPCS: 99212; G0463

== ENCOUNTER 2018-07-24 07:59 | Emergency (ER) | payer OTHER ==
[2018-07-24 08:27] VITALS: BP 132/92
--- NOTE | 2018-07-24 08:49 | UC ---
Dental HPI - HPI Summary HPI Summary: 38 year old male presents with onset of right lower dental pain yesterday. States pain kept him awake most of the night. Notes area of swelling and tenderness to gums. Has appointment with dentist next week. Denies fever, chills , discharge, trismus, or dysphagia. - History of Current Complaint Chief Complaint: UCGeneralIllness Stated Complaint: ORAL CONCERN, SINUSES Time Seen by Provider: 07/24/18 08:27 Hx Obtained From: Patient Onset/Duration: Gradual Onset, Lasting Days - 1 Severity: Moderate Pain Intensity: 6 Aggravating Factor(s): Chewing, Other - touch Alleviating Factor(s): Nothing Related History: Swelling - Allergies/Home Medications Allergies/Adverse Reactions: Allergies Allergy/AdvReac Type Severity Reaction Status Date / Time amoxicillin [From Augmentin] Allergy Difficulty Verified 07/24/18 08:15 Breathing/Wheezing aspirin Allergy Swelling Verified 07/24/18 08:15 Of Face,Lips,& Throat clavulanic acid Allergy Difficulty Verified 07/24/18 08:15 [From Augmentin] Breathing/Wheezing PMH/Surg Hx/FS Hx/Imm Hx - Additional Past Medical History Additional PMH: noncontributory - Surgical History Surgical History: Yes Surgery Procedure, Year, and Place: ear tubes. adenoids removed - Family History Known Family History: Positive: Cardiac Disease - Social History Occupation: Employed Full-time Lives: With Family Alcohol Use: None Substance Use Type: Marijuana Substance Use Comment - Amount & Last Used: OCCASIONALLY Smoking Status (MU): Heavy Every Day Tobacco Smoker Type: Cigarettes Amount Used/How Often: less than 1/2 ppd Have You Smoked in the Last Year: Yes When Did the Patient Quit Smoking/Using Tobacco: started age 11 - Immunization History Most Recent Influenza Vaccination: no 2016 Most Recent Tetanus Shot: UTD Review of Systems Constitutional: Negative Skin: Negative Eyes: Negative ENT: Dental Pain Respiratory: Negative Cardiovascular: Negative Is Patient Immunocompromised?: No All Other Systems Reviewed And Are Negative: Yes Physical Exam Triage Information Reviewed: Yes Appearance: Well-Appearing, Well-Nourished, Pain Distress - Mildly uncomfortable Vital Signs: Initial Vital Signs Temp 98 F 07/24/18 08:25 Pulse 85 07/24/18 08:25 Resp 16 07/24/18 08:25 BP 132/92 07/24/18 08:25 Pulse Ox 100 07/24/18 08:25 Vital Signs Reviewed: Yes Eye Exam: Normal ENT: Positive: Dental tenderness - See diagram, Uvula midline, Other - No trismus. Negative: Pharyngeal erythema, Nasal congestion, Nasal drainage, Tonsillar swelling, Tonsillar exudate, Sinus tenderness Dental: Positive: Abscess @ - See diagram, Other: - Mild facial swelling right lower jaw. Patient endentulous from 1st bicuspid to molars right lower jaw.. Negative: Cervical Lymphadenopathy Neck: Positive: Supple, Nontender, No Lymphadenopathy Respiratory Exam: Normal Respiratory: Positive: Lungs clear, Normal breath sounds, No respiratory distress Cardiovascular: Positive: RRR, No Murmur Neurological: Positive: Alert Skin Exam: Normal Dental Complaint Course/Dx - Course Course Of Treatment: Patient with 1 day history of right lower dental pain and facial swelling. Exam reveals tender, edentulous area to right lower jaw with erythema, induration, and small pocket of fluctuance. Will treat with clindamycin 300 mg TID and recommend urgent follow up with dentist. - Differential Dx/Diagnosis Differential Diagnosis/Dx: Dental Abscess, Gingivitis, Odontogenic Pain Provider Diagnoses: dental abscess, elevated blood pressure reading Discharge - Sign-Out/Discharge Documenting (check all that apply): Patient Departure All imaging exams completed and their final reports reviewed: No Studies - Discharge Plan Condition: Stable Disposition: HOME Prescriptions: Clindamycin HCl 300 mg PO TID #30 capsule Patient Education Materials: Dental Abscess (ED) Referrals: Jania White NP [Primary Care Provider] - If Needed Additional Instructions: Start clindamycin 300 mg 1 cap every 8 hours for 10 days. Be sure to complete the entire course of antibiotic even if you are feeling better. Schedule an appointment with your dentist for next available appointment for evaluation and treatment. Use salt water rinses several times a day. Take an over the counter pain medication such as acetaminophen (Tylenol), ibuprofen (Advil, Motrin), or naproxen (Aleve) according to directions as needed for pain. You may also use a topical numbing agent such as Anbesol for temporary relief. Your blood pressure was slightly elevated in the clinic today. You should follow up with your primary care provider to have this rechecked. - Billing Disposition and Condition Condition: STABLE Disposition: Home Images Dental: 1 - Edentulous. Gingival tenderness, erythema, induration with small pocket of fluctuance.
== END 2018-07-24 09:01 | disposition home or self-care (01) ==
LOC: UCCORT 07:59
DX: K04.7 Periapical abscess without sinus (principal); R03.0 Elevated blood-pressure reading, without diagnosis of hypertension; F17.210 Nicotine dependence, cigarettes, uncomplicated; Z88.0 Allergy status to penicillin; Z88.6 Allergy status to analgesic agent; Z88.1 Allergy status to other antibiotic agents
CPT/HCPCS: 99212; G0463

== ENCOUNTER 2018-09-23 08:32 | Emergency (ER) | payer OTHER ==
--- OUTSIDE RECORDS SUMMARY | 2018-09-23 08:56 | XMS REPORT ---
:1980 External Reference #:[id number] Author Organization [facility] 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 Rosa White NP Primary Care Physician Unavailable Payers Type Date Identification Numbers Payment Provider Subscriber Commercial Effective: Policy Number: [id number] [employer] Medicaid Raffy Lynn 2015 PayID: [id number] [address] [place] [address] Medicaid Policy Number: [id number] Medicaid Raffy Lynn PayID: [id number] [address] [place] [address] Problems Date Description Provider Status Onset: 05/02/2015 Hearing loss Irma Bradford RPAC Active Note: since Onset: 05/02/2015 Asthma Irma Bradford RPAC Active Note: seasonal Onset: 05/02/2015 Cigarette smoker Irma Bradford RPAC Active Onset: 05/02/2015 Obesity Irma Bradford RPAC Active Onset: 05/02/2015 Sacroiliac joint pain Irma Bradford RPAC Active Onset: 06/21/2015 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 Onset: 07/11/2015 Cholesteatoma Irma Bradford RPAC Active Note: left Onset: 10/29/2015 Urolithiasis Irma Bradford RPAC Active Note: as a teen Onset: 10/29/2015 Microscopic hematuria Irma Bradford [facility] Active Onset: 03/27/2016 REM sleep behavior disorder Irma Bradford [facility] Active Note: alprazolam Family History Date Family [...] Comments Lives With Lives With Children Occupation [employer] ETOH Use Occasionally consumes alcohol [...] Strength Qnty SIG Indications Ordering Provider Nicotrol 02/16/ Active Inhaler 10mg 336un 1 cartridge Z72.0 Cindy, 2017 its as needed up Jenniferl to 16 a day eigh, [employer] *do not use cigarettes when using inahler* Omeprazole 02/16/ Active Capsules 20mg 30cap 1 by mouth R12 Cindy, 2017 DR summers every day Jenniferl eigh, [employer] Hydroxyzine 01/29/ Active Tablets 25mg 60tab one by mouth JOSE RAUL White 2018 s q4 hours for Jenniferl anxiety eigh, [employer] Cetirizine HCL 03/12/ Active Tablets 10mg 30tab take one J30.9 Cindy, 2015 s tablet by Jenniferl mouth every eigh, [employer] evening for nasal congestion/ allergies Ibuprofen 05/10/ Active Tablets 800mg 120ta 1 by mouth M46.1 Carlos 2014 bs every 6 hours José El, as needed for DO pain Ventolin HFA 05/02/ Active Aerosol 108(90Bas 18gm 1-2 puffs Cindy 2014 francisca) every 4-6 Jenniferl mcg/Act hours as eigh, [employer] needed Symbicort 05/02/ Active Aerosol 80-4.5mcg 20.4g 2 inhalations J45.909 Cindy 2014 m twice a day Jenniferl eigh, [employer] Montelukast 00// Active Tablets 10mg 30tab one by mouth Clune, Sodium 0000 s every night Jenniferl at bedtime eigh, [employer] Prednisone 02/16/ Hx Tablets 10mg 10tab 1 po bid x 5 J45.909 Cidny, 2018 - s days Jenniferl 03/11/ eigh, [employer] 2018 Azithromycin 01/19/ Hx Tablets 250mg 6tabs 2 tabs today H92.01 Shelby, 2018 - and then 1 Lurdes, 02/16/ tab every day PNP-, 2018 for 4 more [employer], days Ibclc Fluoxetine HCL 01/07/ Hx Capsules 20mg 30cap 1 by mouth F41.1 Cindy, 2018 - s every day Jenniferl 02/16/ eigh, [employer] 2018 Quetiapine 01/07/ Hx Tablets 25mg 60tab take 1 tablet G47.52 [place], Fumarate 2018 - s by mouth 1 Jenniferl 02/16/ hour prior to eigh, [employer] 2018 sleep,if no improvement in 3 days,may try 2 tablets as needed up to 4 tablets at night Alprazolam 04/01/ Hx Tablets 0.5mg 30tab 1 tab by G47.52 Carlos, 2015 - s mouth every José E., 01/07/ night at DO 2018 bedtime for sleep disturbance ::: Reference #: [id number] Alprazolam 03/27/ Hx Tablets 0.5mg 30tab 1 tab by G47.52 Carlos, 2015 - Dispers s mouth at José E., 04/01/ bedtime DO 2015 Trazodone HCL 03/12/ Hx Tablets 50mg 30tab 1 by mouth G47.52 Carlos, 2016 - s every night José E., 03/27/ insomnia DO 2015 Mucinex 12/27/ Hx Tablets ER 600mg 60tab 1-2 tabs by J45.909 Carlos, 2015 - 12HR s mouth twice a José E., 01/07/ day DO 2018 Amoxicillin/Cl 11/26/ Hx Tablets 875-125mg 20tab 1 tab by H71.93 víctor Gonzalez 2015 - s mouth every José E., Potassium 12/27/ 12 hours with DO 2016 food Work Note Hx Raffy is H71.93 Carlos 2016 - following at José El, 11/30/ Primary Care DO 2016 Office for chronic ear condition. Treatment is ongoing. Specialist visit arranged Cephalexin 10/29/ Hx Capsules 500mg 30cap 1 cap ( or H66.3x2 Carlos 2014 - s tab) by mouth José El, 12/27/ three times a DO 2015 day Work Note Hx Was evaluated 719.47 Carlos 2014 - on 07/26/15 for José El, 09/04/ (L) foot and DO 2014 ankle pain. May return to work without restrictions Cephalexin 06/21/ Hx Tablets 500mg 30tab 1 tab (or 381.10 Carlos 2014 - s cap) by mouth José El, 07/11/ three times a DO 2014 day Condylox 06/21/ Hx Gel 0.5% 3.500 Small amt to 078.10 Carlos 2014 - gm penile warts José El, 09/04/ as directed DO 2014 Flovent HFA 05/02/ Hx Aerosol 44mcg/Act inhale two Carlos 2014 - puffs by José El, 05/02/ mouth twice a DO 2014 day as needed Ibuprofen 05/02/ Hx Tablets 800mg 1 by mouth 720.2 Carlos 2014 - every 8 hours José El, 05/02/ as needed for DO 2014 pain Mucinex 05/02/ Hx Tablets ER 600mg 60tab take two by 491.1 Carlos 2014 - 12HR s mouth twice a José El, 06/15/ day for chest DO 2014 congestion/co ugh Cephalexin 05/02/ Hx Tablets 500mg 30tab 1 tab (or 491.1 Carlos 2014 - s cap) by mouth José El, 06/15/ three times a DO 2014 day Nabumetone 05/02/ Hx Tablets 750mg 60tab take one 720.2 Carlos 2014 - s tablet by José El, 05/10/ mouth twice a DO 2014 day with food for pain as needed (substitute for ibuprofen ) Unisom 05/02/ Hx Capsules 50mg uses every Madeline Gonzalez 2015 - night since José El, yrs old DO 2014 Neomycin-Polym / Hx Solution [id number] to ears prn Unknown yxin-HC 0000 - -1 2014 Flovent HFA / Hx Aerosol mcg/Act 2 puff twice Unknown - a day 2014 Hydrocortisone / Hx Solution 1% Otic 10uni Every 8 Hours Unknown /Neomycin/Poly 0000 - ts myxin 2015 Hydroxyzine / Hx Tablets 25mg Gutierrez-Gug HCL 0000 - erty, 01/19/ Erica Elmore 2018 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 Vital Signs Date Vital Result Comment 09/09/2018 Height 73 inches 6'1" Weight 269.00 lb BMI (Body Mass Index) 35.5 kg/m2 BSA (Body Surface Area) 2.44 m2 Momence body weight in kilograms 83 03/11/2018 BP Systolic Sitting Left Arm 128 mmHg BP Diastolic Sitting Left Arm 84 mmHg Body Temperature 98.2 F Heart Rate 84 /min Respiratory Rate 18 /min Height 73 inches 6'1" Weight 271.00 lb BMI (Body Mass Index) 35.8 kg/m2 BSA (Body Surface Area) 2.45 m2 Momence body weight in kilograms 83 02/16/2018 BP Systolic Sitting Left Arm 124 mmHg BP Diastolic Sitting Left Arm 86 mmHg Body Temperature 98.6 F Heart Rate 80 /min Respiratory Rate 20 /min Height 73 inches 6'1" Weight 268.00 lb BMI (Body Mass Index) 35.4 kg/m2 BSA (Body Surface Area) 2.44 m2 Momence body weight in kilograms 83 O2 % BldC Oximetry 98 % 01/19/2018 BP Systolic 158 mmHg BP Diastolic 88 mmHg Body Temperature 98.0 F Heart Rate 97 /min Height 73 inches 6'1" Weight 259.00 lb BMI (Body Mass Index) 34.2 kg/m2 BSA (Body Surface Area) 2.40 m2 Momence body weight in kilograms 83 O2 % BldC Oximetry 97 % 01/07/2018 BP Systolic Sitting Left Arm 152 mmHg BP Diastolic Sitting Left Arm 92 mmHg Heart Rate 88 /min Respiratory Rate 18 /min Height 73 inches 6'1" Weight 262.00 lb BMI (Body Mass Index) 34.6 kg/m2 BSA (Body Surface Area) 2.41 m2 Momence body weight in kilograms 83 03/12/2016 BP [...] Test Date Test Result H/L Range Note Globulin Ser Calc-mCnc 11/04/2017 Globulin Ser Calc-mCnc [...] 1 Lymph % 22.3 % 20.0-42.0 1 Jasper % 4.6 % 0.0-10.0 1 Eo% 0.8 % 0.0-6.6 1 Bas% 0.4 % 0.0-1.1 1 Neut# 8.14 K/uL High 1.8-7.0 1 Lymph # 2.53 K/uL 1.0-4.0 1 Jasper # 0.52 K/uL 0.0-0.8 1 Eos # 0.09 K/uL 0.0-0.5 1 Baso # 0.04 K/uL 0.0-0.1 1 Slide Review 11/04/2017 Slide Review . 1, 5 Laboratory test 11/04/2017 D-Dimer, Quantitative < 0.22 ug/mL 1, 6 finding Alt SerPl-cCnc 11/04/2017 Alt SerPl-cCnc 36 12-78 Albumin/Glob SerPl 11/04/2017 Albumin/Glob SerPl 1.2 Anion Gap SerPl-sCnc 11/04/2017 Anion Gap SerPl-sCnc 5 Low 8-16 Automated blood 11/04/2017 Automated blood 0.04 0.0-0.1 basophil count basophil count (count/volume) (count/volume) Automated blood 11/04/2017 Automated blood 0.09 0.0-0.5 eosinophil count eosinophil count Automated blood 11/04/2017 Automated blood 46.2 38.0-48.0 hematocrit (volume hematocrit (volume fraction) fraction) Automated blood 11/04/2017 Automated blood 2.53 1.0-4.0 lymphocyte count lymphocyte count (number/volume) (number/volume) Automated blood 11/04/2017 Automated blood 273 155-360 platelet count platelet count Automated blood 11/04/2017 Automated blood 9.8 6.6-10.6 platelet mean volume platelet mean volume measurement measurement Automated erythrocyte 11/04/2017 Automated erythrocyte 30.7 27.0-33.0 mean corpuscular mean corpuscular hemoglobin hemoglobin (mass per erythrocyte) Automated erythrocyte 11/04/2017 Automated erythrocyte 34.6 31.7-36.0 mean corpuscular mean corpuscular hemoglobin hemoglobin concentration measurement (mass/volume) Automated erythrocyte 11/04/2017 Automated erythrocyte 88.5 80.0-96.0 mean corpuscular mean corpuscular volume volume BUN/Creat SerPl 11/04/2017 BUN/Creat SerPl 17.0 Basophils/leuk NFr 11/04/2017 Basophils/leuk NFr Bld 0.4 0.0-1.1 Bld Auto Auto Blood erythrocytes 11/04/2017 Blood erythrocytes 5.22 4.20-5.80 automated count automated count (number/volume) (number/volume) Eosinophil/leuk NFr 11/04/2017 Eosinophil/leuk NFr 0.8 0.0-6.6 Bld Auto Bld Auto Chloride SerPl-sCnc 11/04/2017 Chloride SerPl-sCnc 108 High 98-107 Blood hemoglobin 11/04/2017 Blood hemoglobin 16.0 12.8-17.0 measurement measurement (mass/volume) (mass/volume) Blood monocytes 11/04/2017 Blood monocytes 0.52 0.0-0.8 automated count automated count (number/volume) (number/volume) Laboratory test 11/21/2015 Basophils # (Auto) 0.04 Low 0.1-0.2 finding Basophils (%) (Auto) 0.5 0.1-1.0 Eosinophils # (Auto) 0.12 0.0-0.5 Eosinophils (%) (Auto) 1.6 0.0-5.0 Lymphocytes # (Auto) 3.49 1.8-7.0 Lymphocytes (%) (Auto) 47.6 17.0-56.0 Monocytes # (Auto) 0.47 0.0-0.8 Monocytes (%) (Auto) 6.4 0.0-10.0 Neutrophils # (Auto) 3.21 1.8-7.0 Neutrophils (%) (Auto) 43.9 33.0-73.0 RDW Coefficient of Variation 12.8 11.6-15.8 Red Cell Distribution Width 41.0 36-51 Sodium Level 139 136-145 CBC W/Automated Diff 11/21/2015 White Blood Count [...] % 33.0-73.0 Lymph % 47.6 % 17.0-56.0 Jasper % 6.4 % 0.0-10.0 Eo% 1.6 % 0.0-5.0 Bas% 0.5 % 0.1-1.0 Neut# 3.21 K/uL 1.8-7.0 Lymph # 3.49 K/uL 1.8-7.0 Jasper # 0.47 K/uL 0.0-0.8 Eos # 0.12 K/uL 0.0-0.5 Baso # 0.04 K/uL Low 0.1-0.2 Laboratory test finding 11/21/2015 CK 199 U/L 39-308 Troponin-I < 0.015 ng/mL 7 Comprehensive Metabolic Panel 11/21/2015 Glucose 77 mg/dL 74-106 BUN 14 mg/dL 7-18 Creatinine 0.9 mg/dL 0.6-1.3 Glom Filtration Rate, Estimate >60 mL/min >60 If >60 mL/min >60 8 BUN/Creat 15.5 ratio Sodium 139 mmol/L 136-145 Potassium 4.1 mmol/L 3.5-5.1 Chloride 105 mmol/L 98-107 Carbon Dioxide 29 mmol/L 21-32 Anion Gap 5 mEq/L Low 8-16 Calcium 8.7 mg/dL 8.5-10.1 Total Protein 7.5 g/dL 6.4-8.2 Albumin 4.1 g/dL 3.4-5.0 Globulin 3.4 g/dL 1.9-4.3 Alb/Glob 1.2 ratio Bilirubin,Total 0.5 mg/dL 0.2-1.0 Sgot/Ast 14 U/L Low 15-37 9 SGPT/Alt 31 U/L 12-78 Alkaline Phosphatase 65 U/L 45-117 1 RAPID HEART RATE X4 DAYS,ABCESS INSIDE [...] DVT, or Pulmonary embolism as clinically indicated. ([facility] has established a 97.89% negative predictive value for thrombotic disease when a cutoff value of 0.5 ug/mL is used.) 7 0.0 - 0.045 ng/mL: Normal 0.046 - 0.5 ng/mL: Suggestive 0.6 - 1.5 ng/mL: Consistent 8 Note: Persistent reduction for 3 months or more in an eGFR <60 mL/min/1.73 m2 defines CKD. Patients with eGFR values >/=60 mL/min/1.73 m2 may also have CKD if evidence of persistent proteinuria is present. The original MDRD equation for estimated GFR is not valid for patients less than 18 years of age. Additional information may be found at www.kdoqi.org. 9 Values below the stated reference ranges of AST and ALT can be seen in normal populations. Clinical correlation is suggested. Procedures Description No Information Encounters Type Date Location Provider CPT E/M Dx Office Visit 03/11/2018 8:45a Family Rosa Archer, [address]6914 J45.909 [employer] F17.210 R12 Office Visit 02/16/2018 11:45a Family Rosa Archer [address]15 J45.909 [facility] G47.52 F17.210 R12 Office Visit 01/19/2018 3:30p Family Medicine Lurdes Ryan, PNP-, 82841 H92.01 [employer], Ibclc Office Visit 01/07/2018 1:00p Family Medicine Rosa White, [facility] 10578 H71.93 J45.909 F17.210 F41.1 G47.52 Office Visit 03/12/2016 2:00p Primary Care Office Irma Bradford, 42793 G47.52 RPAC H60.42 J30.9 M77.11 Office Visit 12/27/2015 2:15p Primary Care Office Irma Bradford, 88824 H71.93 RPAC J45.909 F17.210 Office Visit 11/26/2015 10:15a Primary Care Office Irma Bradford, 51100 H71.93 RPAC Office Visit 10/29/2015 1:15p [facility] Bradford[facility] [address] [facility] R31.2 Office Visit 07/26/2015 11:00a Primary Care Office Irma Bradford, 39847 719.47 RPAC Office Visit 06/21/2015 2:15p Primary Care Office Irma Bradford, 11480 381.10 RPAC 078.10 Office Visit 05/02/2015 10:45a Primary Care Office Irma Bradford, 64367 385.30 RPAC 736.76 493.90 491.1 780.53 720.2 Plan of Care 09/09/2018 - Rosa White, OJK21.9 Gastro-esophageal reflux disease without esophagitisNew Labs:H Pylori,Igm,Igg,Iga AntibodiesCBC W/Automated DiffComprehensive Metabolic PanelLDL Cholesterol ProfileLipaseAmylaseComments: Continue with Omeprazole until told otherwise by gastroenterologyContinleatha Hairston. pylori testing done todayReferral:Jude Johnston MD, GastroenterologyFollow up:3 months recheck 30 minJ45.909 Unspecified asthma, uncomplicatedComments:May be contributing to feelings of chest pressure - be sure to use Singulair nightly as well as DaecllbxxI69.210 Nicotine dependence, cigarettes, uncomplicatedComments:restart Nicotrol to help quit - it worked before for 6 weeks, it will work again
[2018-09-23 09:08] VITALS: BP 116/71
--- NOTE | 2018-09-23 10:11 | ED ---
Throat Pain/Nasal Congestion - HPI Summary HPI Summary: 38 yr old with 3-4 days of runny nose, cough and ear pain left worse then right. No sob. Others in family also ill. - History of Current Complaint Chief Complaint: UCGeneralIllness Time Seen by Provider: 09/23/18 09:27 - Allergies/Home Medications Allergies/Adverse Reactions: Allergies Allergy/AdvReac Type Severity Reaction Status Date / Time aspirin Allergy Swelling Verified 07/24/18 08:15 Of Face,Lips,& Throat clavulanic acid Allergy Difficulty Verified 07/24/18 08:15 [From Augmentin] Breathing/Wheezing Home Medications: Home Medications Albuterol HFA INHALER* [Ventolin HFA Inhaler*] 2 puff INH Q4H PRN 09/23/18 [ History Confirmed 09/23/18] hydrOXYzine HCL TAB* [Atarax 25 MG TAB*] 25 mg PO BEDTIME 09/23/18 [History Confirmed 09/23/18] PMH/Surg Hx/FS Hx/Imm Hx Endocrine/Hematology History: Denies: Hx Diabetes Cardiovascular History: Reports: Hx Hypertension Denies: Hx Pacemaker/ICD Respiratory History: Reports: Hx Asthma Sensory History: Denies: Hx Hearing Aid Psychiatric History: Denies: Hx Panic Disorder - Surgical History Surgery Procedure, Year, and Place: ear tubes. adenoids removed Infectious Disease History: No Infectious Disease History: Denies: Traveled Outside the [place] in Last 30 Days - Family History Known Family History: Positive: Cardiac Disease - Social History Occupation: Employed Full-time Lives: With Family Alcohol Use: None Substance Use Type: Reports: Marijuana Substance Use Comment - Amount & Last Used: OCCASIONALLY Smoking Status (MU): Heavy Every Day Tobacco Smoker Type: Cigarettes Amount Used/How Often: less than 1/2 ppd Have You Smoked in the Last Year: Yes Review of Systems Constitutional: Negative Positive: Ear Ache Positive: Cough All Other Systems Reviewed And Are Negative: Yes Physical Exam Triage Information Reviewed: Yes Vital Signs On Initial Exam: Initial Vitals Temp Pulse Resp BP Pulse Ox 98.3 F 74 14 116/71 99 09/23/18 09:04 09/23/18 09:04 09/23/18 09:04 09/23/18 09:04 09/23/18 09:04 Vital Signs Reviewed: Yes Appearance: Positive: Well-Appearing, No Pain Distress Skin: Positive: Warm, Skin Color Reflects Adequate Perfusion Eyes: Positive: EOMI ENT: Positive: TM red - left Neck: Positive: Nontender Respiratory/Lung Sounds: Positive: Clear to Auscultation, Breath Sounds Present Cardiovascular: Positive: RRR. Negative: Murmur Abdomen Description: Positive: Nontender Musculoskeletal: Positive: Strength/ROM Intact Neurological: Positive: Sensory/Motor Intact, Alert, Oriented to Person Place, Time, CN Intact II-III, Normal Gait, Speech Normal Psychiatric: Positive: Normal - Rudy Coma Scale Best Eye Response: 4 - Spontaneous Best Motor Response: 6 - Obeys Commands Best Verbal Response: 5 - Oriented Coma Scale Total: 15 Diagnostics - Vital Signs Vital Signs Temp Pulse Resp BP Pulse Ox 09/23/18 09:04 98.3 F 74 14 116/71 99 - Laboratory Lab Statement: Any lab studies that have been ordered have been reviewed, and results considered in the medical decision making process. EENT Course/Dx - Course Course Of Treatment: 38 yr old male with Otitis media, URI symptoms. Rx with Amoxicillin which he requests and states works well for him in the past. - Diagnoses Provider Diagnoses: Otitis media, URI (upper respiratory infection) Discharge - Sign-Out/Discharge Documenting (check all that apply): Patient Departure All imaging exams completed and their final reports reviewed: No Studies - Discharge Plan Condition: Good Disposition: HOME Prescriptions: Amoxicillin PO (*) [Amoxicillin 500 MG CAP*] 500 mg PO TID #30 cap Patient Education Materials: Ear Infection (ED) Referrals: Jania White NP [Primary Care Provider] - 2 Days - Billing Disposition and Condition Condition: GOOD Disposition: Home
== END 2018-09-23 10:21 | disposition home or self-care (01) ==
LOC: UCCORT 08:32
DX: H66.92 Otitis media, unspecified, left ear (principal); F17.210 Nicotine dependence, cigarettes, uncomplicated; J06.9 Acute upper respiratory infection, unspecified; Z88.6 Allergy status to analgesic agent; Z88.8 Allergy status to other drugs, medicaments and biological substances
CPT/HCPCS: 99212; G0463

== ENCOUNTER 2018-10-12 08:34 | Emergency (ER) | payer OTHER ==
[2018-10-12 09:11] VITALS: BP 124/88
--- NOTE | 2018-10-12 09:32 | UC ---
Ear Complaint HPI - HPI Summary HPI Summary: bilateral ear pain x 4 weeks difficulty hearing , had treatment for ear infection 3 weeks ago , not better no fever, no chills, no cold symptoms - History of Current Complaint Chief Complaint: UCEar Stated Complaint: EARS SORE THROAT Time Seen by Provider: 10/12/18 09:17 Hx Obtained From: Patient Onset/Duration: Gradual Onset, Lasting Weeks - 4, Still Present Severity Initially: Moderate Severity Currently: Moderate Pain Intensity: 3 Aggravating Factors: Nothing Alleviating Factors: Nothing Associated Signs/Symptoms: Positive: Hearing Loss. Negative: Discharge, Foreign Body Sensation, Trauma to Ear, Swelling @, URI Symptoms - Allergies/Home Medications Allergies/Adverse Reactions: Allergies Allergy/AdvReac Type Severity Reaction Status Date / Time aspirin Allergy Swelling Verified 10/12/18 09:06 Of Face,Lips,& Throat clavulanic acid Allergy Difficulty Verified 10/12/18 09:06 [From Augmentin] Breathing/Wheezing PMH/Surg Hx/FS Hx/Imm Hx Cardiovascular History: Hypertension Respiratory History: Asthma - Surgical History Surgical History: Yes Surgery Procedure, Year, and Place: ear tubes. adenoids removed - Family History Known Family History: Positive: Cardiac Disease - Social History Alcohol Use: None Substance Use Type: Marijuana Substance Use Comment - Amount & Last Used: OCCASIONALLY Smoking Status (MU): Heavy Every Day Tobacco Smoker Type: Cigarettes Amount Used/How Often: less than 1/2 ppd Have You Smoked in the Last Year: Yes When Did the Patient Quit Smoking/Using Tobacco: started age 11 - Immunization History Most Recent Influenza Vaccination: no 2016 Most Recent Tetanus Shot: UTD Review of Systems All Other Systems Reviewed And Are Negative: Yes Skin: Positive: Negative Eyes: Positive: Negative ENT: Positive: Ear Ache Respiratory: Positive: Negative Cardiovascular: Positive: Negative Is Patient Immunocompromised?: No Physical Exam Triage Information Reviewed: Yes Appearance: Well-Appearing, No Pain Distress, Well-Nourished Vital Signs: Initial Vital Signs Temp 98.1 F 10/12/18 09:07 Pulse 91 10/12/18 09:07 Resp 16 10/12/18 09:07 BP 124/88 10/12/18 09:07 Pulse Ox 99 10/12/18 09:07 Vital Signs Reviewed: Yes Eye Exam: Normal Eyes: Positive: Conjunctiva Clear ENT: Positive: Normal ENT inspection, Hearing grossly normal, Pharynx normal. Negative: Pharyngeal erythema, Nasal congestion, Nasal drainage, TM bulging, TM dull, TM red Neck: Positive: Supple, Nontender, No Lymphadenopathy Respiratory: Positive: Chest non-tender, Lungs clear, Normal breath sounds Cardiovascular: Positive: RRR, No Murmur, Pulses Normal Skin Exam: Normal Ear Complaint Course/Dx - Differential Dx/Diagnosis Provider Diagnoses: otalgia Discharge - Sign-Out/Discharge Documenting (check all that apply): Patient Departure All imaging exams completed and their final reports reviewed: No Studies - Discharge Plan Condition: Stable Disposition: HOME Patient Education Materials: Earache (ED) Referrals: Jania White NP [Primary Care Provider] - 7 Days Additional Instructions: no ear infection discomfort due to pressure may Try Flonase daily for 2 weeks - Billing Disposition and Condition Condition: STABLE Disposition: Home
== END 2018-10-12 09:30 | disposition home or self-care (01) ==
LOC: UCCORT 08:34
DX: H92.03 Otalgia, bilateral (principal); J45.909 Unspecified asthma, uncomplicated; I10 Essential (primary) hypertension; F17.210 Nicotine dependence, cigarettes, uncomplicated; Z88.6 Allergy status to analgesic agent; Z88.1 Allergy status to other antibiotic agents
CPT/HCPCS: 99211; G0463

== ENCOUNTER 2018-12-21 09:55 | Emergency (ER) | payer OTHER ==
[2018-12-21 10:20] VITALS: BP 135/86
--- NOTE | 2018-12-21 10:40 | UC ---
Throat Pain/Nasal Herson HPI - HPI Summary HPI Summary: left ear pain x 5 days nasal congestion, cough , pnd sinus pain and pressure , left ear clear discharge, - History of Current Complaint Chief Complaint: UCGeneralIllness Stated Complaint: SORE THROAT,RUNNY NOSE, LT EAR COMPLAINT Time Seen by Provider: 12/21/18 10:18 Hx Obtained From: Patient Onset/Duration: Gradual Onset, Lasting Days - 5, Still Present Severity: Moderate Pain Intensity: 8 Pain Scale Used: 0-10 Numeric Cough: Nonproductive Associated Signs & Symptoms: Positive: Sinus Discomfort, Nasal Discharge. Negative: Wheezing, Fever, Vomiting, Rash - Allergies/Home Medications Allergies/Adverse Reactions: Allergies Allergy/AdvReac Type Severity Reaction Status Date / Time aspirin Allergy Swelling Verified 12/21/18 10:15 Of Face,Lips,& Throat clavulanic acid Allergy Difficulty Verified 12/21/18 10:15 [From Augmentin] Breathing/Wheezing Home Medications: Home Medications Cetirizine* [ZyrTEC 10 MG TAB*] 10 mg PO DAILY 12/21/18 [History Confirmed 12/21] Ibuprofen TAB* [Motrin TAB* 400 MG] 400 mg PO Q6H PRN 12/21/18 [History Confirmed 12/21/18] Omeprazole 20 mg PO DAILY 12/21/18 [History Confirmed 12/21/18] PMH/Surg Hx/FS Hx/Imm Hx - Additional Past Medical History Additional PMH: cholesteatoma Cardiovascular History: Hypertension Respiratory History: Asthma - Surgical History Surgical History: Yes Surgery Procedure, Year, and Place: ear tubes. adenoids removed - Family History Known Family History: Positive: Cardiac Disease - Social History Alcohol Use: None Substance Use Type: Marijuana Substance Use Comment - Amount & Last Used: OCCASIONALLY Smoking Status (MU): Heavy Every Day Tobacco Smoker Type: Cigarettes Amount Used/How Often: less than 1/2 ppd Have You Smoked in the Last Year: Yes When Did the Patient Quit Smoking/Using Tobacco: started age 11 - Immunization History Most Recent Influenza Vaccination: no 2016 Most Recent Tetanus Shot: UTD Review of Systems All Other Systems Reviewed And Are Negative: Yes Constitutional: Positive: Negative Skin: Positive: Negative Eyes: Positive: Negative ENT: Positive: Ear Ache, Nasal Discharge, Sinus Congestion, Sinus Pain/ Tenderness Respiratory: Positive: Cough Cardiovascular: Positive: Negative Gastrointestinal: Positive: Negative Is Patient Immunocompromised?: No Physical Exam Triage Information Reviewed: Yes Appearance: Well-Appearing, No Pain Distress, Well-Nourished Vital Signs: Initial Vital Signs Temp 99.2 F 12/21/18 10:16 Pulse 84 12/21/18 10:16 Resp 16 12/21/18 10:16 BP 135/86 12/21/18 10:16 Pulse Ox 100 12/21/18 10:16 Eye Exam: Normal Eyes: Positive: Conjunctiva Clear ENT: Positive: Normal ENT inspection, Hearing grossly normal, Pharynx normal, Nasal congestion, Nasal drainage, TM bulging, TM red - left ear. Negative: Pharyngeal erythema Neck: Positive: Supple, Nontender, No Lymphadenopathy Respiratory: Positive: Chest non-tender, Lungs clear, Normal breath sounds Cardiovascular: Positive: RRR, No Murmur Skin Exam: Normal Throat Pain/Nasal Course/Dx - Differential Dx/Diagnosis Provider Diagnosis: Otitis media of left ear Discharge - Sign-Out/Discharge Documenting (check all that apply): Patient Departure All imaging exams completed and their final reports reviewed: No Studies - Discharge Plan Condition: Stable Disposition: HOME Prescriptions: Amoxicillin PO (*) [Amoxicillin 875 MG (*)] 875 mg PO BID #20 tab Patient Education Materials: Ear Infection (ED) Referrals: Jania White NP [Primary Care Provider] - 7 Days - Billing Disposition and Condition Condition: STABLE Disposition: Home
== END 2018-12-21 10:31 | disposition home or self-care (01) ==
LOC: UCCORT 09:55
DX: H66.92 Otitis media, unspecified, left ear (principal); R09.81 Nasal congestion; R05 Cough; J34.89 Other specified disorders of nose and nasal sinuses; J02.9 Acute pharyngitis, unspecified; R09.89 Other specified symptoms and signs involving the circulatory and respiratory systems; I10 Essential (primary) hypertension; J45.909 Unspecified asthma, uncomplicated; F17.210 Nicotine dependence, cigarettes, uncomplicated; Z88.1 Allergy status to other antibiotic agents; Z88.8 Allergy status to other drugs, medicaments and biological substances
CPT/HCPCS: 99212; G0463

== ENCOUNTER 2019-02-12 09:59 | Emergency (ER) | payer OTHER ==
[2019-02-12 12:02] VITALS: BP 124/81
--- NOTE | 2019-02-12 12:12 | UC ---
[facility] Dental HPI - HPI Summary HPI Summary: Pt presents with c/o swelling and pain right lower jaw that began 2 days ago. Pt also c/o bilateral ear ache x 2 days. - History of Current Complaint Chief Complaint: UCEar Stated Complaint: BILATERAL EAR CONCERN,DENTAL Time Seen by Provider: 02/12/19 11:58 Hx Obtained From: Patient Onset/Duration: Gradual Onset, Lasting Days, Still Present Severity: Moderate Pain Intensity: 8 Aggravating Factor(s): Heat, Cold, Chewing Alleviating Factor(s): Nothing Related History: Swelling - Allergies/Home Medications Allergies/Adverse Reactions: Allergies Allergy/AdvReac Type Severity Reaction Status Date / Time aspirin Allergy Swelling Verified 02/12/19 11:58 Of Face,Lips,& Throat clavulanic acid Allergy Difficulty Verified 02/12/19 11:58 [From Augmentin] Breathing/Wheezing PMH/Surg Hx/FS Hx/Imm Hx Previously Healthy: Yes - Surgical History Surgical History: Yes Surgery Procedure, Year, and Place: ear tubes. adenoids removed - Family History Known Family History: Positive: Cardiac Disease - Social History Occupation: Employed Full-time Lives: With Family Alcohol Use: Occasionally Substance Use Type: None Substance Use Comment - Amount & Last Used: OCCASIONALLY Smoking Status (MU): Heavy Every Day Tobacco Smoker Type: Cigarettes Amount Used/How Often: less than 1/2 ppd Have You Smoked in the Last Year: Yes When Did the Patient Quit Smoking/Using Tobacco: started age 11 - Immunization History Most Recent Influenza Vaccination: no 2016 Most Recent Tetanus Shot: UTD Vaccination Up to Date: No Review of Systems All Other Systems Reviewed And Are Negative: Yes Constitutional: Positive: Negative Skin: Positive: Negative Eyes: Positive: Negative ENT: Positive: Dental Pain Respiratory: Positive: Negative Cardiovascular: Positive: Negative Gastrointestinal: Positive: Negative Genitourinary: Positive: Negative Motor: Positive: Negative Neurovascular: Positive: Negative Musculoskeletal: Positive: Negative Neurological: Positive: Negative Psychological: Positive: Negative Is Patient Immunocompromised?: No Physical Exam Triage Information Reviewed: Yes Appearance: Well-Appearing Vital Signs: Initial Vital Signs Temp 97.7 F 02/12/19 11:59 Pulse 66 02/12/19 11:59 Resp 16 02/12/19 11:59 BP 124/81 02/12/19 11:59 Pulse Ox 100 02/12/19 11:59 Vital Signs Reviewed: Yes Eye Exam: Normal ENT Exam: Normal Dental: Positive: Abscess @ - right lower jaw, pt does not have any molars on right lower jaw. Neck exam: Normal Respiratory Exam: Normal Cardiovascular Exam: Normal Musculoskeletal Exam: Normal Neurological Exam: Normal Psychological Exam: Normal Skin Exam: Normal Dental Complaint Course/Dx - Differential Dx/Diagnosis Differential Diagnosis/Dx: Dental Abscess Provider Diagnosis: Dental abscess Discharge - Sign-Out/Discharge Documenting (check all that apply): Patient Departure All imaging exams completed and their final reports reviewed: No Studies - Discharge Plan Condition: Stable Disposition: HOME Prescriptions: Clindamycin HCl 300 mg PO Q8H #30 capsule Lidocaine 2% VISCOUS* [Xylocaine 2% Viscous*] 15 ml SWISH SPIT Q4H PRN #1 btl PRN Reason: Pain Patient Education Materials: Dental Abscess (ED) Referrals: Jania White, [employer] [Primary Care Provider] - If Needed Additional Instructions: Please follow up with your dental care provider as soon as possible. - Billing Disposition and Condition Condition: STABLE Disposition: Home - Attestation Statements Provider Attestation: I was available for consult. This patient was seen by the HORACE. The patient was not presented to, seen by, or examined by me. EK
== END 2019-02-12 12:20 | disposition home or self-care (01) ==
LOC: UCCORT 09:59
DX: K04.7 Periapical abscess without sinus (principal); F17.210 Nicotine dependence, cigarettes, uncomplicated; Z88.8 Allergy status to other drugs, medicaments and biological substances; Z88.0 Allergy status to penicillin
CPT/HCPCS: 99212; G0463

== ENCOUNTER 2019-08-08 07:59 | Emergency (ER) | payer OTHER ==
[2019-08-08 08:39] VITALS: BP 118/75
--- NOTE | 2019-08-08 08:59 | UC ---
Ear Complaint HPI - HPI Summary HPI Summary: 39-year-old male comes in with a chief complaint of left ear pain and decreased hearing. Started the last several days. Patient sees Dr. Kapoor ENT for a cholesteatoma in his left ear which is scheduled to be removed in August 2019. He was unable to see Dr. Kapoor today due to scheduling. No fevers no chills. Patient's had recurrent ear infections. - History of Current Complaint Chief Complaint: UCEar Stated Complaint: LEFT EAR,SINUSES Time Seen by Provider: 08/08/19 08:24 Pain Intensity: 7 - Allergies/Home Medications Allergies/Adverse Reactions: Allergies Allergy/AdvReac Type Severity Reaction Status Date / Time aspirin Allergy Swelling Verified 08/08/19 08:33 Of Face,Lips,& Throat clavulanic acid Allergy Difficulty Verified 08/08/19 08:33 [From Augmentin] Breathing/Wheezing PMH/Surg Hx/FS Hx/Imm Hx Previously Healthy: Yes - LEFT CHOLESTEATOMA - Surgical History Surgical History: Yes Surgery Procedure, Year, and Place: ear tubes. adenoids removed - Family History Known Family History: Positive: Cardiac Disease - Social History Alcohol Use: Occasionally Substance Use Type: None Substance Use Comment - Amount & Last Used: OCCASIONALLY Smoking Status (MU): Heavy Every Day Tobacco Smoker Type: Cigarettes Amount Used/How Often: less than 1/2 ppd Have You Smoked in the Last Year: Yes When Did the Patient Quit Smoking/Using Tobacco: started age 11 - Immunization History Most Recent Influenza Vaccination: no 2016 Most Recent Tetanus Shot: UTD Vaccination Up to Date: No Review of Systems All Other Systems Reviewed And Are Negative: Yes Constitutional: Positive: Negative Skin: Positive: Negative Eyes: Positive: Negative ENT: Positive: Ear Ache Respiratory: Positive: Negative Cardiovascular: Positive: Negative Gastrointestinal: Positive: Negative Motor: Positive: Negative Neurovascular: Positive: Negative Musculoskeletal: Positive: Negative Neurological: Positive: Negative Psychological: Positive: Negative Is Patient Immunocompromised?: No Physical Exam Triage Information Reviewed: Yes Appearance: Well-Appearing, No Pain Distress, Well-Nourished Vital Signs: Initial Vital Signs Temp 98.7 F 08/08/19 08:34 Pulse 83 08/08/19 08:34 Resp 16 08/08/19 08:34 BP 118/75 08/08/19 08:34 Pulse Ox 98 08/08/19 08:34 Vital Signs Reviewed: Yes Eye Exam: Normal Eyes: Positive: Conjunctiva Clear ENT: Positive: Pharynx normal, Other - In the left ear behind the eardrum is a pearly mass. There is fluid with bubbles in it and the TM there is some erythema. Neck: Positive: Supple Respiratory: Positive: Lungs clear, Normal breath sounds, No respiratory distress Cardiovascular: Positive: RRR Musculoskeletal: Positive: Strength Intact, ROM Intact Neurological: Positive: Alert Psychological: Positive: Age Appropriate Behavior Skin Exam: Normal Ear Complaint Course/Dx - Course Course Of Treatment: I spoke with the patient's pharmacy and they reported he was on azithromycin 500 mg for 5 days of June to treat for an ear infection on the left. Patient reports he has a problem with Augmentin which gives him difficulty with breathing. He also tells me he has problems with ciprofloxacin. Because of difficulty with breathing with Augmentin I did not choose either amoxicillin or a cephalosporin. Treating with doxycycline 100 mg twice a day for 10 days. Patient to follow-up with Dr. Kapoor. Reevaluate sooner if worse or any questions or concerns. - Differential Dx/Diagnosis Provider Diagnosis: Cholesteatoma of left ear, Left otitis media Discharge ED - Sign-Out/Discharge Documenting (check all that apply): Patient Departure All imaging exams completed and their final reports reviewed: No Studies - Discharge Plan Condition: Stable Disposition: HOME Prescriptions: DOXYcycline CAP(*) [DOXYcycline 100MG CAP(*)] 100 mg PO BID #20 cap Patient Education Materials: Ear Infection (ED) Referrals: Jania White NP [Primary Care Provider] - Jevon Kapoor MD [Medical Doctor] - Additional Instructions: FOLLOW UP WITH DR KAPOOR. GET REEVALUATED SOONER IF WORSE OR ANY QUESTIONS OR CONCERNS. - Billing Disposition and Condition Condition: STABLE Disposition: Home
== END 2019-08-08 09:05 | disposition home or self-care (01) ==
LOC: UCCORT 07:59
DX: H71.92 Unspecified cholesteatoma, left ear (principal); H66.92 Otitis media, unspecified, left ear; F17.210 Nicotine dependence, cigarettes, uncomplicated
CPT/HCPCS: 99212; G0463